=== PATIENT | female | born 1950 | race Caucasian/White ===

== ENCOUNTER 2021-04-30 12:12 | Outpatient (REF) | payer OTHER, SELFPAY | END 2021-04-30 12:13 | disposition home or self-care (01) | LOC: HO.LAB 12:12 | PROVIDERS: PCP Internal Medicine; Visit Provider Internal Medicine | DX: Z13.89 Encounter for screening for other disorder (principal) ==

== ENCOUNTER 2021-05-03 07:36 | Outpatient (REF) | payer OTHER, SELFPAY ==
[2021-05-03 08:00] LABS: COVID-19 Test Negative (Negative)
== END 2021-05-03 07:37 | disposition home or self-care (01) ==
LOC: HO.LAB 07:36
PROVIDERS: PCP Internal Medicine; Visit Provider Internal Medicine
DX: Z20.822 Contact with and (suspected) exposure to COVID-19 (principal)
CPT/HCPCS: 36415; 87635; C9803

== ENCOUNTER 2021-12-07 09:14 | Emergency (ER) | payer OTHER, SELFPAY ==
--- NOTE | ~2021-12-07 | XR_ITS ---
EXAMINATION: XR CHEST CLINICAL INFORMATION: Chest pain COMPARISON: Previous chest x-ray most recent September 2019 TECHNIQUE: Frontal view of the chest was obtained. FINDINGS: No significant abnormality is noted involving the heart, lungs, mediastinum, bony thorax or soft tissues. XR/XR chest 1V IMPRESSION: Unremarkable examination.
--- NOTE | 2021-12-07 09:17 | ECG_ITS ---
Test Reason : CHEST PAIN Blood Pressure : / mmHG Vent. Rate : 076 BPM Atrial Rate : 076 BPM P-R Int : 146 ms QRS Dur : 068 ms QT Int : 388 ms P-R-T Axes : 063 -28 052 degrees QTc Int : 436 ms Normal sinus rhythm Normal ECG When compared with ECG of 13-SEP-2019 10:12, No significant change was found Referred By: Generic ED Physician Electronically Signed By:Yariel Ibarra
[2021-12-07 09:27] VITALS: BP 163/85; PULSE 88; RESP 18; TEMP 36.7; O2SAT 98; BMI 24.3
--- NOTE | 2021-12-07 09:35 | ED.CHESTPAIN ---
HPI - Chest Pain General Chief Complaint: Chest Pain Stated Complaint: chest discomfort Time Seen by Provider: 12/07/21 09:35 Source: patient Mode of arrival: ambulatory Limitations: no limitations History of Present Illness HPI narrative: 71 y/o female with history of HTN, strabismus who presents to the ER with chronic intermittent episodes of left-sided chest pain for the last several years. She reports the pain is a dull ache or tightness in the left chest that occurs randomly. And has been on and off for several years. She had a normal stress test several years back. Pain is not worse with exertion. she denies any shortness of breath, diaphoresis, nausea. She is very physically active and fit. Her primary care was not worried about cardiac etiology. She presents to the ER today because she also has new onset of left forearm pain the last few days. She called her PCP and told him about this, concern for possible cardiac etiology in combination with the chest pain so she was referred to the emergency room for further evaluation. Left forearm pain is anterior and proximal in location. Worse with palpation, no numbness, tingling or weakness. Right hand dominant. MD complaint: chest pain Onset (ago): year(s) Timing of current episode: episodic Prior episodes: Yes Onset: during rest Pain location: left chest Pain radiation: none Severity: mild Pain scale (0-10): 3 Quality: heaviness Relieving factors: nothing Exacerbating factors: nothing Treatment prior to arrival: none Risk Factors Coronary artery disease risk factors: hypertension Thoracic aortic dissection risk factors: none Related Data Previous Rx's Medication Instructions Recorded lorazepam 1 mg tablet (Ativan) 1 mg PO DAILY PRN #10 tab 12/07/21 Allergies Allergy/AdvReac Type Severity Reaction Status Date / Time morphine [Morphine] Allergy Unknown NAUSEA Verified 12/07/21 09:25 Review of Systems Review of Systems: Constitutional: No Fever, No Chills ENT/Mouth: No sore throat, No Rhinorrhea Cardiovascular: + Chest Pain, No SOB, No Orthopnea, No Edema Respiratory: No Cough, No Sputum, No Wheezing, No dyspnea Gastrointestinal: No Nausea, No Vomiting, No Diarrhea, No abdominal Pain Genitourinary: No Dysuria, No Urinary Frequency, No Hematuria Musculoskeletal: No joint pain, + Myalgias Skin: No Skin Lesions, No rash Neuro: No Weakness, No Numbness, No Dizziness, No Headache Psych: +Anxiety/Panic, No Depression Heme/Lymph: No Bruising, No Lymphadenopathy Endocrine: No Polyuria, No Polydipsia [facility] Past Medical History Medical History (Updated 12/07/21 @ 11:40 by MAO Phillip) HTN (hypertension) ELI (obstructive sleep apnea) Social History Social History Advance Directives: No Advance Directives Information Provided: No Physical Exam Vital Signs: Vital Signs: Last Vital Signs Temp 97.8 F 12/07/21 10:29 Pulse 80 12/07/21 10:29 Resp 18 12/07/21 10:29 BP 152/86 H 12/07/21 10:29 Pulse Ox 99 12/07/21 10:29 BMI result Body Mass Index 24.3 Appearance: Alert. Oriented X3. No acute distress. Eyes: Pupils equal, round and reactive to light. ENT: Pharynx normal. Neck: Normal inspection. Neck supple. CVS: Normal heart rate and rhythm. Pulses normal. Anterior chest wall tenderness. Respiratory: No respiratory distress. Breath sounds normal. Abdomen: Soft and nontender. +BS x4 Skin: Skin warm and dry. Normal skin color. Normal skin turgor. No rashes. Extremities: No lower extremity edema. Normal inspection of the bilateral UE, left anterior proximal forearm with mild soft tissue tenderness. Compartments soft and compressible. NV Intact distally. Normal ROM of the elbow and wrist. Neuro: Oriented X 3. No motor deficit. No sensory deficit. Course Course Course Narrative: 71-year-old female presenting to the ER with chronic left-sided chest pain Along with new left forearm pain. These 2 do not seem to be related. Doubt cardiac etiology of her chest pain given the chronicity. She had a stress test several years ago that was negative. EKG on arrival is normal. Reevaluation(s) Reevaluation #1: EKG is normal. Troponin 9. This is not consistent with cardiac ischemia/ACS. Patient admits to increased stress and anxiety. Would like a short course of PRN ativan until she can see her PCP, she has been on this in the past. Comfortable with d/c home with outpatient follow up. MDM - Chest Pain Medical Records Data Attestation: I reviewed the patient's medical records. Lab Data Attestation: I reviewed the patient's lab results. Result diagrams: 12/07/21 10:26 12/07/21 10:26 Labs: Lab Results 12/07/21 12/07/21 12/07/21 Range/Units 10:26 10:26 10:26 WBC 5.0 (4.8-10.8) X10*3/uL RBC 4.77 (4.20-5.50) X10*6/uL Hgb 14.7 (12.0-16.0) g/dl Hct 44.9 (37.0-47.0) % MCV 94.1 (80.0-98.0) fL MCH 30.8 (27.0-33.0) pg MCHC 32.7 (31.0-35.0) g/dl RDW 12.6 (11.0-16.0) % Plt Count 305 (160-400) X10*3/uL MPV 9.7 (9.4-12.3) fL Immature Gran % (Auto) 0.2 (0.0-0.4) % Neut % (Auto) 65.7 (45-73) % Lymph % (Auto) 23.4 (20-40) % [place] % (Auto) 9.3 (2-11) % Eos % (Auto) 0.4 (0-4) % Baso % (Auto) 1.0 (0-2) % Lymph # (Auto) 1.2 (1.2-4.9) X10*3/uL [place] # (Auto) 0.5 (0.1-1.2) X10*3/uL Eos # (Auto) 0.0 (0.0-0.4) X10*3/uL Baso # (Auto) 0.1 (0.0-0.2) X10*3/uL Abs Immat Gran (auto) 0.01 (0.00-0.03) X10*3/uL Absolute Neuts (auto) 3.3 (2.0-8.3) x10*3/uL Absolute Nucleated RBC 0.000 (0.0-0.012) X10*3/uL Nucleated RBC % (auto) 0.0 (0.0-0.2) /100WBC Sodium 137 (135-145) mmol/L Potassium 5.2 H (3.3-5.1) mmol/L Chloride 102 (96-108) mmol/L Carbon Dioxide 26 (22-29) mmol/L Anion Gap 14 (12-20) BUN 10 (9-16) mg/dL Creatinine 1.02 (0.5-1.4) mg/dL Estim Creat Clear Calc 44.9 Estimated GFR 54 Random Glucose 112 (60-115) mg/dL Calcium 10.1 (8.4-10.2) mg/dL Magnesium 2.0 (1.6-2.6) mg/dL Total Bilirubin 0.7 (0.0-1.0) mg/dL Direct Bilirubin 0.3 (0.0-0.5) mg/dL AST 17 (5-31) U/L ALT < 6 (0-31) U/L Alkaline Phosphatase 81 (39-117) U/L Troponin I High Sens 9.4 (<3.5-17.0) ng/L Total Protein 6.8 (6.5-8.0) g/dL Albumin 4.3 (3.5-5.0) g/dL COVID-19 (STEVE) (Negative) COVID-19 Clin Com 12/07/21 Range/Units 10:26 WBC (4.8-10.8) X10*3/uL RBC (4.20-5.50) X10*6/uL Hgb (12.0-16.0) g/dl Hct (37.0-47.0) % MCV (80.0-98.0) fL MCH (27.0-33.0) pg MCHC (31.0-35.0) g/dl RDW (11.0-16.0) % Plt Count (160-400) X10*3/uL MPV (9.4-12.3) fL Immature Gran % (Auto) (0.0-0.4) % Neut % (Auto) (45-73) % Lymph % (Auto) (20-40) % [place] % (Auto) (2-11) % Eos % (Auto) (0-4) % Baso % (Auto) (0-2) % Lymph # (Auto) (1.2-4.9) X10*3/uL [place] # (Auto) (0.1-1.2) X10*3/uL Eos # (Auto) (0.0-0.4) X10*3/uL Baso # (Auto) (0.0-0.2) X10*3/uL Abs Immat Gran (auto) (0.00-0.03) X10*3/uL Absolute Neuts (auto) (2.0-8.3) x10*3/uL Absolute Nucleated RBC (0.0-0.012) X10*3/uL Nucleated RBC % (auto) (0.0-0.2) /100WBC Sodium (135-145) mmol/L Potassium (3.3-5.1) mmol/L Chloride (96-108) mmol/L Carbon Dioxide (22-29) mmol/L Anion Gap (12-20) BUN (9-16) mg/dL Creatinine (0.5-1.4) mg/dL Estim Creat Clear Calc Estimated GFR Random Glucose (60-115) mg/dL Calcium (8.4-10.2) mg/dL Magnesium (1.6-2.6) mg/dL Total Bilirubin (0.0-1.0) mg/dL Direct Bilirubin (0.0-0.5) mg/dL AST (5-31) U/L ALT (0-31) U/L Alkaline Phosphatase (39-117) U/L Troponin I High Sens (<3.5-17.0) ng/L Total Protein (6.5-8.0) g/dL Albumin (3.5-5.0) g/dL COVID-19 (STEVE) Negative (Negative) COVID-19 Clin Com See Note ECG Data ECG #1: Attestation: I personally reviewed and interpreted this ECG as follows: ECG interpretation date: 12/07/21 Interpretation: Normal sinus rhythm, heart rate 76 beats per minute, normal IA interval, normal QRS, normal QTC, no ST segment elevations or depressions. Critical Care Time Critical Care Time Critical Care Time: No Discharge Plan Discharge Clinical Impression: Atypical chest pain Patient Disposition: Home, Self-Care Instructions: Noncardiac Chest Pain (ED) Additional Instructions: Your lab workup & EKG today were unremarkable. The arm pain does not seem to be related to the chest discomfort and your chest discomfort is not thought to be cardiac in nature. Recommend following up with your primary care doctor. Take the prescribed medication as needed for anxiety. If you develop new or worsening symptoms call 911 or come back to the ER for further evaluation. Prescriptions: New lorazepam [Ativan] 1 mg tablet 1 mg PO DAILY PRN (Reason: anxiety) Qty: 10 0RF Referrals: Joseline Ayers MD [Primary Care Provider] - 1 week (follow up chronic left sided chest pain) Interventions: ED Discharge Assessment Last Done: 12/07/21 12:11 Discharge Date/Time: 12/07/21 12:11
[2021-12-07 10:29] VITALS: BP 152/86; PULSE 80; RESP 18; TEMP 36.6; O2SAT 99
[2021-12-07 10:35] LABS: MANUAL DIFF FLAG NO
[2021-12-07 10:38] LABS: Basophils Absolute Auto 0.1 X10*3/uL (0.0-0.2); Eosinophils Percent Auto 0.4 % (0-4); Hematocrit 44.9 % (37.0-47.0); Hemoglobin 14.7 g/dl (12.0-16.0); Imm Gran Abs Auto 0.01 X10*3/uL (0.00-0.03); Imm Gran Pct Auto 0.2 % (0.0-0.4); Lymphocytes Absolute Auto 1.2 X10*3/uL (1.2-4.9); Lymphocytes Percent Auto 23.4 % (20-40); Mean Corpuscular HGB Conc 32.7 g/dl (31.0-35.0); Mean Corpuscular Hemoglobin 30.8 pg (27.0-33.0); Mean Corpuscular Volume 94.1 fL (80.0-98.0); Mean Platelet Volume 9.7 fL (9.4-12.3); Monocytes Absolute Auto 0.5 X10*3/uL (0.1-1.2); Monocytes Percent Auto 9.3 % (2-11); Neutrophils Absolute Auto 3.3 x10*3/uL (2.0-8.3); Neutrophils Percent Auto 65.7 % (45-73); Platelet Count 305 X10*3/uL (160-400); Red Blood Count 4.77 X10*6/uL (4.20-5.50); Red Cell Distribution Width 12.6 % (11.0-16.0)
[2021-12-07 11:04] LABS: COVID-19 Test Negative (Negative)
[2021-12-07 11:12] LABS: Alanine Aminotransferase < 6 U/L (0-31); Albumin Level 4.3 g/dL (3.5-5.0); Alkaline Phosphatase 81 U/L (39-117); Anion Gap 14 (12-20); Aspartate Amino Transferase 17 U/L (5-31); Bilirubin Direct 0.3 mg/dL (0.0-0.5); Bilirubin Total 0.7 mg/dL (0.0-1.0); Blood Urea Nitrogen 10 mg/dL (9-16); Calcium 10.1 mg/dL (8.4-10.2); Carbon Dioxide 26 mmol/L (22-29); Chloride 102 mmol/L (96-108); Creatinine Clr Calc Pharmacy 44.9; Estimated Glomerular Filt Rate 54; Glucose Random 112 mg/dL (60-115); Potassium 5.2 mmol/L (3.3-5.1); Sodium 137 mmol/L (135-145); Total Protein 6.8 g/dL (6.5-8.0)
[2021-12-07 11:26] LABS: Troponin-I High Sensitivity 9.4 ng/L (<3.5-17.0)
== END 2021-12-07 12:11 | disposition home or self-care (01) ==
PROVIDERS: Physician Assistant; Emergency Provider Emergency Medicine; PCP Internal Medicine
DX: R07.89 Other chest pain (principal); I10 Essential (primary) hypertension; Z20.822 Contact with and (suspected) exposure to COVID-19; Z79.899 Other long term (current) drug therapy
CPT/HCPCS: 71045; 80048; 80076; 83735; 84484; 85025; 87635; 93005; 99283; 99284

== ENCOUNTER 2022-09-18 15:25 | Emergency (ER) | payer OTHER, SELFPAY ==
[2022-09-18 16:38] VITALS: BP 179/89; PULSE 105; RESP 18; TEMP 36.8; O2SAT 97; BMI 24.0
--- NOTE | 2022-09-18 16:42 | ECG_ITS ---
Test Reason : weakness Blood Pressure : / mmHG Vent. Rate : 092 BPM Atrial Rate : 092 BPM P-R Int : 142 ms QRS Dur : 068 ms QT Int : 350 ms P-R-T Axes : 049 -27 049 degrees QTc Int : 432 ms Normal sinus rhythm Normal ECG When compared with ECG of 07-DEC-2021 09:18, No significant change was found Referred By: Generic ED Physician Electronically Signed By:PONCHO DE LOS SANTOS
[2022-09-18 18:06] LABS: MANUAL DIFF FLAG NO
[2022-09-18 18:07] LABS: Basophils Absolute Auto 0.1 X10*3/uL (0.0-0.2); Basophils Percent Auto 0.6 % (0-2); Eosinophils Percent Auto 0.3 % (0-4); Hematocrit 42.3 % (37.0-47.0); Hemoglobin 14.4 g/dl (12.0-16.0); Imm Gran Abs Auto 0.09 X10*3/uL (0.00-0.03); Lymphocytes Absolute Auto 1.4 X10*3/uL (1.2-4.9); Lymphocytes Percent Auto 16.2 % (20-40); Mean Corpuscular Hemoglobin 30.3 pg (27.0-33.0); Mean Corpuscular Volume 88.9 fL (80.0-98.0); Mean Platelet Volume 8.1 fL (9.4-12.3); Monocytes Absolute Auto 0.9 X10*3/uL (0.1-1.2); Monocytes Percent Auto 10.1 % (2-11); Neutrophils Absolute Auto 6.3 x10*3/uL (2.0-8.3); Neutrophils Percent Auto 71.8 % (45-73); Platelet Count 367 X10*3/uL (160-400); Red Blood Count 4.76 X10*6/uL (4.20-5.50); Red Cell Distribution Width 12.9 % (11.0-16.0); White Blood Count 8.8 X10*3/uL (4.8-10.8)
[2022-09-18 18:20] LABS: COVID-19 Test Negative (Negative); IDNOW Serial# 16C4AD1C
[2022-09-18 18:23] LABS: IDNOW Serial# BCCEAD1C; Influenza A Negative (Negative); Influenza B2 Negative (Negative)
[2022-09-18 18:28] LABS: Anion Gap 14 (12-20); Blood Urea Nitrogen 14 mg/dL (9-16); Calcium 9.5 mg/dL (8.4-10.2); Carbon Dioxide 24 mmol/L (22-29); Chloride 98 mmol/L (96-108); Creatinine Clr Calc Pharmacy 57.2; Estimated Glomerular Filt Rate > 60; Glucose Random 128 mg/dL (60-115); Potassium 4.3 mmol/L (3.3-5.1); Sodium 132 mmol/L (135-145)
[2022-09-18 20:59] VITALS: BP 176/86; PULSE 102; RESP 22; TEMP 36.8; O2SAT 98
--- NOTE | 2022-09-18 21:13 | ED.GENADULT ---
HPI - General Adult General Chief complaint: Weakness Stated complaint: weak, high blood pressure Time Seen by Provider: 09/18/22 20:52 Source: patient Mode of arrival: ambulatory Limitations: no limitations History of Present Illness HPI narrative: Patient comes to the emergency room complaining of not feeling right. Patient states that she is recovering from a upper respiratory infection. For the last 3 days she has been feeling well respiratory [place], however, she has been feeling a bit ?weak and woozy . Patient denies any chest pain or shortness of breath, no lightheadedness, no chest pain. Patient states that she feels a bit anxious, tomorrow is the anniversary of her twins brother's . Patient denies any near syncopal episodes, no nausea vomiting or diarrhea. Patient states that 2 weeks ago, her lisinopril was increased from 10 mg to 20 mg for blood pressure. What makes patient come today is that she has been tachycardic between 110-120 without any recent. Patient denies feeling anxious or having panic attacks. Related Data Previous Rx's Medication Instructions Recorded lorazepam 1 mg tablet (Ativan) 1 mg PO DAILY PRN anxiety #10 tabs 12/07/21 Allergies Allergy/AdvReac Type Severity Reaction Status Date / Time morphine [Morphine] Allergy Unknown NAUSEA Verified 12/07/21 09:25 Review of Systems Review of Systems: Constitutional : No Weight loss, No Fever, No Chills, No Night Sweats, No Fatigue, No Malaise, not feeling quite right ENT/Mouth : No Hearing loss, No Ear Pain, No Nasal Congestion, No Sinus Pain, No Hoarseness, No sore throat, No Rhinorrhea, No Swallowing Difficulty Eyes: No Eye Pain, No Swelling, No Redness, No Foreign Body, No Discharge, No Vision Changes Cardiovascular : No Chest Pain, No SOB, No Dyspnea on Exertion, No Orthopnea, No Edema, No Palpitations Respiratory : Residual cough from URI, No Sputum, No Wheezing, No Smoke Exposure, No Dyspnea Gastrointestinal : No Nausea, No Vomiting, No Diarrhea, No Constipation, No abdominal Pain, No Hematochezia, No Melena Genitourinary : no irregular bleeding, No Dysuria, No Urinary Frequency, No Hematuria, No Urinary Incontinence, No Urgency, No Flank Pain, No Urinary Flow Changes, No Hesitancy Musculoskeletal : No joint pain, No Myalgias, No Joint Swelling Skin : No Skin Lesions, No rash Neuro : No Weakness, No Numbness, No Paresthesias, No Loss of Consciousness, No Dizziness, No Headache Psych : No Anxiety/Panic, No Depression, No SI/HI/AH/VH, No Social Issues, Heme/Lymph: No Bruising, No Bleeding,No Lymphadenopathy Endocrine : No Polyuria, No Polydipsia, No Temperature Intolerance [facility] Past Medical History Medical History HTN (hypertension) ELI (obstructive sleep apnea) Social History Social History Alcohol intake: current Alcohol intake frequency: a few times a week Alcohol type: beer Smoked in Last 30 Days: No Use of substances other than those prescribed or required for medical reasons: No Advance Directives: No Advance Directives Information Provided: No Physical Exam ED Vital Signs: Vital Signs - 24 hr 09/18/22 16:38 09/18/22 20:59 09/19/22 00:31 Temperature 98.2 F 98.2 F 98.1 F Pulse Rate 105 H 102 H 93 Respiratory Rate 18 22 H 18 Blood Pressure 179/89 H 176/86 H 153/85 H Pulse Oximetry 97 98 99 Oxygen Delivery Method Room Air Room Air Room Air BMI result Body Mass Index 24.0 Const Other: Appearance: Alert. Oriented X3. No acute distress. Eyes: Pupils equal, round and reactive to light. ENT: Pharynx normal. Neck: Normal inspection. Neck supple. No lymph nodes noted. No crepitus CVS: Normal heart rate and rhythm. Pulses normal. Normal S1 and S2 Respiratory: No respiratory distress. Breath sounds normal. No Wheezing. No rales Abdomen: Soft and nontender. No rigidity. No distention. Skin: Skin warm and dry. Normal skin color. Normal skin turgor. Extremities: No lower extremity edema. No Lacerations. No Rash Neuro: Oriented X 3. No motor deficit. No sensory deficit. Moving all extremities. No slurred speech. CN 2 through 12 grossly intact Psych: calm, cooperative, normal affect Course Course Course Narrative: Patient's blood pressure 176/86, heart rate 102. Patient's sodium slightly decreased at 132, troponin is within normal limits but is on the upper limits of normal. Will go ahead and repeat troponin. Patient has been tachycardic, per patient at home she has been up to 130 with any clear reason, denies feeling anxious, dimer pending Mild hyponatremia, patient received 1 L of normal saline Troponins are relatively stable. Patient feels well, no chest pain. Patient ready for discharge. D-dimer adjusted for age is negative. Wells criteria score for PE 0 Medications Administered Discontinued Medications Generic Name Dose Route Start Last Admin Trade Name Freq PRN Reason Stop Dose Admin Sodium Chloride 1,000 mls @ 999 mls/hr 09/18/22 21:12 09/18/22 22:08 Ns IVCONT 09/18/22 22:12 999 mls/hr .Q1H1M ONE Administration Medical Decision Making Medical Decision Making Differential Diagnoses: Differential diagnosis (Viral syndrome, UTI, ACS) Lab Attestation: I reviewed the patient's lab results. (Troponins a relatively flat, no chest pain) Independent interpretation of EKG, rhythm strip, radiology study: Independent interp EKG,rhythm strip, radiology study I performed an independent interpretation of the: EKG My interpretation is sinus rhythm, heart rate 92, no ST segment depression or elevation, no T-wave inversion Discharge Plan Discharge Clinical Impression: Acute viral syndrome Patient Disposition: Home, Self-Care Instructions: Viral Syndrome (ED) Additional Instructions: Please follow-up with your primary care physician tomorrow. If you have any worsening or new symptoms, please return to the emergency room or call 911 Prescriptions: No Action lorazepam [Ativan] 1 mg tablet 1 mg PO DAILY PRN (Reason: anxiety) Qty: 10 0RF
[2022-09-18] MEDS: 0.9 % Sodium Chloride 1,000 ML 999 ML IVCONT (22:08)
[2022-09-18 22:17] LABS: Appearance Urine Clear; Color Urine Yellow; Glucose Urine UA Negative (Negative); Leukocyte Esterase Urine Negative (Negative); Nitrite Urine Negative (Negative); PH 6.5 (5.0-9.0); Urine Blood Negative (Negative); Urine Ketones Negative (Negative); Urine Protein Negative (Neg-Trace)
[2022-09-18 22:27] LABS: D Dimer High Sensitivity 235 NG/ML
[2022-09-18 22:39] LABS: Troponin-I High Sensitivity 19.7 ng/L (<3.5-17.0)
[2022-09-19 00:31] VITALS: BP 153/85; PULSE 93; RESP 18; TEMP 36.7; O2SAT 99
[2022-09-19 00:53] LABS: Troponin-I High Sensitivity 19.5 ng/L (<3.5-17.0)
[2022-09-19 01:32] VITALS: BP 162/89; PULSE 91; RESP 18; O2SAT 96
== END 2022-09-19 01:42 | disposition home or self-care (01) ==
PROVIDERS: Internal Medicine; Emergency Provider Emergency Medicine; PCP Internal Medicine
DX: B34.9 Viral infection, unspecified (principal); R00.0 Tachycardia, unspecified; Z20.822 Contact with and (suspected) exposure to COVID-19; Z79.899 Other long term (current) drug therapy
CPT/HCPCS: 36415; 80048; 81003; 84484; 85025; 85379; 87502; 87635; 93005; 99283; 99284

== ENCOUNTER 2022-11-28 12:29 | Emergency (ER) | payer OTHER, SELFPAY ==
--- NOTE | ~2022-11-28 | CT_ITS ---
EXAMINATION: CT HEAD WITHOUT CONTRAST CLINICAL INFORMATION: Headache. COMPARISON: CT head 09/13/2019 TECHNIQUE: Contiguous axial imaging was performed from the skull base to vertex without intravenous administration of contrast. Coronal and sagittal reformatted images are performed at the CT scanner. [This CT examination was performed using dose optimization techniques as appropriate, variously including the following: *Automated exposure control *Adjustment of mA and/or kV according to patient size (this includes techniques or standardized protocols for targeted exams where dose is matched to indication/reason for exam; i.e. extremities or head) *Use of iterative reconstruction technique] DLP: 606 mGy-cm. FINDINGS: There is no evidence of acute intracranial hemorrhage or territorial infarction. No abnormal mass-effect or midline shift is seen. Price to white matter differentiation is well preserved. No extra-axial fluid collections are identified. The ventricles are normal in size. There is no abnormal attenuation within the brain parenchyma. There is no osseous abnormality. The mastoid air cells and visualized portions of the paranasal sinuses are well-aerated. CT/CT head/brain wo IV con IMPRESSION: No acute intracranial pathology.
--- NOTE | ~2022-11-28 | XR_ITS ---
EXAMINATION: XR CHEST CLINICAL INFORMATION: Weakness COMPARISON: Previous chest x-ray most recent December 2021 TECHNIQUE: 2 views of the chest were obtained. FINDINGS: The cardiac and mediastinal contours are stable. The lungs are clear. The lungs are well-inflated questionable for COPD. There is no pleural effusion or pneumothorax.. There are degenerative changes of the spine. XR/XR chest 2V IMPRESSION: No evidence for acute disease in the chest.
--- NOTE | 2022-11-28 12:35 | ECG_ITS ---
Test Reason : heart fluttering Blood Pressure : / mmHG Vent. Rate : 072 BPM Atrial Rate : 072 BPM P-R Int : 160 ms QRS Dur : 070 ms QT Int : 396 ms P-R-T Axes : 070 -21 059 degrees QTc Int : 433 ms Normal sinus rhythm Nonspecific ST abnormality Abnormal ECG When compared with ECG of 18-SEP-2022 17:48, Nonspecific ST and T wave abnormality slightly more prominent Referred By: Kelly Kyle Electronically Signed By:PONCHO DE LOS SANTOS
--- NOTE | 2022-11-28 12:36 | ED.ARRPALP ---
HPI - Arrhythmia/Palpitations General Chief Complaint: Chest Pain <MAO Phillip - Last Filed: 11/28/22 12:43> Stated Complaint: Heart fluttering/Weakness/ feels funny <MAO Phillip - Last Filed: 11/28/22 12:43> Time Seen by Provider: 11/28/22 19:54 <MAO Phillip - Last Filed: 11/28/22 12:43> Source: patient and family <Bay Johnson MD - Last Filed: 11/28/22 20:44> Mode of arrival: ambulatory <Bay Johnson MD - Last Filed: 11/28/22 20:44> Limitations: no limitations <Bay Johnson MD - Last Filed: 11/28/22 20:44> History of Present Illness HPI narrative: 72-year-old female recently diagnosed with hypertension patient was placed on lisinopril and Cardizem initially, then recently her PCP added metoprolol to her medication, patient stated that ever since she had the metoprolol been getting episodes of feeling palpitation and heart is fluttering, waves of severe headache that stay for short time then improve, patient was driving today when she started to have the symptoms of feeling palpitation and heart fluttering with headache that has improved symptoms was associated with nausea but no vomiting, no blurry vision, no photophobia, no neck stiffness. During the interview patient has no chest pain or palpitation <Bay Johnson MD - Last Filed: 11/28/22 20:44> Related Data Home Medications: Previous Rx's Medication Instructions Recorded lorazepam 1 mg tablet (Ativan) 1 mg PO DAILY PRN anxiety #10 tabs 12/07/21 <MAO Phillip - Last Filed: 11/28/22 12:43> Allergies/Adverse Reactions: Allergies Allergy/AdvReac Type Severity Reaction Status Date / Time morphine [Morphine] Allergy Unknown NAUSEA Verified 11/28/22 12:37 <MAO Phillip - Last Filed: 11/28/22 12:43> Review of Systems Review of Systems: All other systems are reviewed and are negative Constitutional: Reports as per HPI and Reports no additional constitutional complaints Eyes: Reports as per HPI and Reports no additional eye complaints Reports system reviewed and no additional complaints, except as documented Cardiovascular: Reports as per HPI and Reports no additional cardiovascular complaints Respiratory: Reports as per HPI and Reports no additional respiratory complaints Gastrointestinal: Reports as per HPI and Reports no additional gastrointestinal complaints Genitourinary: Reports no additional female genitourinary complaints Musculoskeletal: Reports no additional musculoskeletal complaints Skin/Breast: Reports system reviewed and no additional complaints, except as docu Psychiatric: Reports no additional psychiatric complaints Endocrine: Reports no additional endocrine complaints Hematologic/Lymphatic: Reports no additional hematologic/lymphatic complaints Allergic/Immunologic: Reports no additional allergic/immunologic complaints Reports system reviewed and no additional complaints, except as documented and Reports Abnormal speech present <Bay Johnson MD - Last Filed: 11/28/22 20:44> [facility] Past Medical History Medical History: Medical History HTN (hypertension) ELI (obstructive sleep apnea) <MAO Phillip - Last Filed: 11/28/22 12:43> Social History Social History: Social History Alcohol intake: current Alcohol intake frequency: a few times a week Alcohol type: beer Advance Directives: No Advance Directives Information Provided: No <MAO Phillip - Last Filed: 11/28/22 12:43> Physical Exam Vital Signs: Vital Signs: Last Vital Signs Temp 98.0 F 11/28/22 19:55 Pulse 84 11/28/22 19:55 Resp 16 11/28/22 19:55 BP 157/79 H 11/28/22 19:55 Pulse Ox 97 11/28/22 19:55 O2 Del Method 11/28/22 19:55 BMI result Body Mass Index 24.3 <MAO Phillip - Last Filed: 11/28/22 12:43> Vital Signs: Last Vital Signs Temp 98.0 F 11/28/22 19:55 Pulse 84 11/28/22 19:55 Resp 16 11/28/22 19:55 BP 157/79 H 11/28/22 19:55 Pulse Ox 97 11/28/22 19:55 O2 Del Method 11/28/22 19:55 BMI result Body Mass Index 24.3 Vital signs have been reviewed as appeared to be correct. Blood pressure normal. Heart rate normal. Respiration rate normal. Temperature normal. Oxygen saturation normal. <Bay Johnson MD - Last Filed: 11/28/22 20:44> Appearance: Anxious, Alert. Oriented X3. No acute distress. Head: Normal external exam. Normocephalic. Atraumatic. No Haider signs noted. No raccoon eyes noted Eyes: PERRLA. EOMI. Conjunctiva and sclera normal. Eyelids normal. ENT: TM's Normal. Pharynx normal. Uvula midline. Moist mucous membranes. No trismus noted. No drooling noted. No muffled voice noted. Neck: Normal inspection. Neck supple. FROM. No adenopathy. Thyroid Normal. No meningeal signs. No neck mass noted. CVS: Normal heart rate and rhythm. Heart sound normal. No murmurs noted. Pulses normal throughout. Respiratory: No respiratory distress. Painless inspiration. Breath sounds normal. No wheezes/rales/rhonchi noted. Chest nontender. No accessory muscle usage noted or decreased air movement noted. Abdomen: Soft and nontender. Bowel sounds normal in all 4 quadrants. No distention noted. No organomegaly noted. No visible injury noted. Back: No CVA tenderness. Full range of motion noted. Skin: Skin warm and dry. Normal skin color. Normal skin turgor. No rashes/lesions/lacerations noted. Extremities: No lower extremity edema. Extremities exhibit normal range of motion. Extremities nontender. Neuro: Oriented X 3. Cranial nerve exam: II-XII are grossly intact No motor deficit. No sensory deficit. Reflexes normal. <Bay Johnson MD - Last Filed: 11/28/22 20:44> Course Course Course Narrative: RME - 72 yo female with history of HTN who presents to the ER for evaluation of heart fluttering, pounding headache, weakness and feeling hot that started a couple days ago, but got acutely worse 30 mins ago while driving. Feels nauseated, shakey and weak. Metoprolol was recently started for difficult to control BP (has been running 140-160s systolic at home). She is also on cardizem and lisinopril. No chest pain or SOB. something isn't right. VS w/ SBP 180s in triage, HR 90s. Will get EKG, troponin, labs. <MAO Phillip - Last Filed: 11/28/22 12:43> Reevaluation(s) Reevaluation #1: 72-year-old female came in for headache and chest pain that is been going on and off since she started her metoprolol patient appears to be very anxious in the emergency department, unremarkable EKG and unremarkable labs including troponin, normal neuro exam a normal head CT. Will reassure patient has an appointment with her PCP in 3 days. <Bay Johnson MD - Last Filed: 11/28/22 20:44> Time: 21:00 <Bay Johnson MD - Last Filed: 11/28/22 20:44> Medical Decision Making Differential Diagnosis Differential Diagnoses: The differential diagnosis associated with the presentation includes (Hypertensive emergency, ic bleeding, ACS, dysrhythmia, electrolyte disturbance, anemia.) <Bay Johnson MD - Last Filed: 11/28/22 20:44> Lab Data MDM Lab Attestation statement: I reviewed the patient's lab results. <Bay Johnson MD - Last Filed: 11/28/22 20:44> Result Diagrams: 11/28/22 12:58 11/28/22 12:58 <MAO Phillip - Last Filed: 11/28/22 12:43> Labs: Lab Results 11/28/22 11/28/22 11/28/22 Range/Units 12:58 12:58 12:58 WBC 6.3 (4.8-10.8) X10*3/uL RBC 4.78 (4.20-5.50) X10*6/uL Hgb 14.7 (12.0-16.0) g/dl Hct 44.3 (37.0-47.0) % MCV 92.7 (80.0-98.0) fL MCH 30.8 (27.0-33.0) pg MCHC 33.2 (31.0-35.0) g/dl RDW 12.5 (11.0-16.0) % Plt Count 366 (160-400) X10*3/uL MPV 8.8 L (9.4-12.3) fL Immature Gran % (Auto) 0.2 (0.0-0.4) % Neut % (Auto) 58.2 (45-73) % Lymph % (Auto) 31.2 (20-40) % [place] % (Auto) 8.8 (2-11) % Eos % (Auto) 0.6 (0-4) % Baso % (Auto) 1.0 (0-2) % Lymph # (Auto) 2.0 (1.2-4.9) X10*3/uL [place] # (Auto) 0.6 (0.1-1.2) X10*3/uL Eos # (Auto) 0.0 (0.0-0.4) X10*3/uL Baso # (Auto) 0.1 (0.0-0.2) X10*3/uL Abs Immat Gran (auto) 0.01 (0.00-0.03) X10*3/uL Absolute Neuts (auto) 3.7 (2.0-8.3) x10*3/uL Absolute Nucleated RBC 0.000 (0.0-0.012) X10*3/uL Nucleated RBC % (auto) 0.0 (0.0-0.2) /100WBC Sodium 136 (135-145) mmol/L Potassium 3.8 (3.3-5.1) mmol/L Chloride 101 (96-108) mmol/L Carbon Dioxide 22 (22-29) mmol/L Anion Gap 17 (12-20) BUN 8 L (9-16) mg/dL Creatinine 0.82 (0.5-1.4) mg/dL Estim Creat Clear Calc 55.1 Estimated GFR > 60 Random Glucose 110 (60-115) mg/dL Calcium 9.5 (8.4-10.2) mg/dL Magnesium 1.8 (1.6-2.6) mg/dL Total Bilirubin 0.7 (0.0-1.0) mg/dL Direct Bilirubin 0.2 (0.0-0.5) mg/dL AST 18 (5-31) U/L ALT 8 (0-31) U/L Alkaline Phosphatase 68 (39-117) U/L Troponin I High Sens 3.9 D (<3.5-17.0) ng/L Total Protein 7.1 (6.5-8.0) g/dL Albumin 4.5 (3.5-5.0) g/dL TSH (0.32-4.0) uIU/mL Urine Color Urine Appearance Urine pH (5.0-9.0) Ur Specific [place] (1.005-1.025) Urine Protein (Neg-Trace) mg/dL Urine Glucose (UA) (Negative) mg/dL Urine Ketones (Negative) mg/dL Urine Blood (Negative) Urine Nitrite (Negative) Ur Leukocyte Esterase (Negative) Urine RBC (0-2) /HPF Urine WBC (0-5) /HPF Ur Squamous Epith Cells (0-2) /HPF Urine Bacteria (None Seen) Hyaline Casts (0-2) /LPF COVID-19 (STEVE) (Negative) COVID-19 Clin Com 11/28/22 11/28/22 11/28/22 Range/Units 12:58 12:58 19:58 WBC (4.8-10.8) X10*3/uL RBC (4.20-5.50) X10*6/uL Hgb (12.0-16.0) g/dl Hct (37.0-47.0) % MCV (80.0-98.0) fL MCH (27.0-33.0) pg MCHC (31.0-35.0) g/dl RDW (11.0-16.0) % Plt Count (160-400) X10*3/uL MPV (9.4-12.3) fL Immature Gran % (Auto) (0.0-0.4) % Neut % (Auto) (45-73) % Lymph % (Auto) (20-40) % [place] % (Auto) (2-11) % Eos % (Auto) (0-4) % Baso % (Auto) (0-2) % Lymph # (Auto) (1.2-4.9) X10*3/uL [place] # (Auto) (0.1-1.2) X10*3/uL Eos # (Auto) (0.0-0.4) X10*3/uL Baso # (Auto) (0.0-0.2) X10*3/uL Abs Immat Gran (auto) (0.00-0.03) X10*3/uL Absolute Neuts (auto) (2.0-8.3) x10*3/uL Absolute Nucleated RBC (0.0-0.012) X10*3/uL Nucleated RBC % (auto) (0.0-0.2) /100WBC Sodium (135-145) mmol/L Potassium (3.3-5.1) mmol/L Chloride (96-108) mmol/L Carbon Dioxide (22-29) mmol/L Anion Gap (12-20) BUN (9-16) mg/dL Creatinine (0.5-1.4) mg/dL Estim Creat Clear Calc Estimated GFR Random Glucose (60-115) mg/dL Calcium (8.4-10.2) mg/dL Magnesium (1.6-2.6) mg/dL Total Bilirubin (0.0-1.0) mg/dL Direct Bilirubin (0.0-0.5) mg/dL AST (5-31) U/L ALT (0-31) U/L Alkaline Phosphatase (39-117) U/L Troponin I High Sens (<3.5-17.0) ng/L Total Protein (6.5-8.0) g/dL Albumin (3.5-5.0) g/dL TSH 1.78 (0.32-4.0) uIU/mL Urine Color Yellow Urine Appearance Clear Urine pH 7.0 (5.0-9.0) Ur Specific [place] 1.010 (1.005-1.025) Urine Protein Negative (Neg-Trace) mg/dL Urine Glucose (UA) Negative (Negative) mg/dL Urine Ketones 15 (Negative) mg/dL Urine Blood Trace H (Negative) Urine Nitrite Negative (Negative) Ur Leukocyte Esterase Negative (Negative) Urine RBC 0-2 (0-2) /HPF Urine WBC 0-5 (0-5) /HPF Ur Squamous Epith Cells 0-2 (0-2) /HPF Urine Bacteria None Seen (None Seen) Hyaline Casts 0-2 (0-2) /LPF COVID-19 (STEVE) Negative (Negative) COVID-19 Clin Com See Note <MAO Phillip - Last Filed: 11/28/22 12:43> Lab Results 11/28/22 11/28/22 11/28/22 Range/Units 12:58 12:58 12:58 WBC 6.3 (4.8-10.8) X10*3/uL RBC 4.78 (4.20-5.50) X10*6/uL Hgb 14.7 (12.0-16.0) g/dl Hct 44.3 (37.0-47.0) % MCV 92.7 (80.0-98.0) fL MCH 30.8 (27.0-33.0) pg MCHC 33.2 (31.0-35.0) g/dl RDW 12.5 (11.0-16.0) % Plt Count 366 (160-400) X10*3/uL MPV 8.8 L (9.4-12.3) fL Immature Gran % (Auto) 0.2 (0.0-0.4) % Neut % (Auto) 58.2 (45-73) % Lymph % (Auto) 31.2 (20-40) % [place] % (Auto) 8.8 (2-11) % Eos % (Auto) 0.6 (0-4) % Baso % (Auto) 1.0 (0-2) % Lymph # (Auto) 2.0 (1.2-4.9) X10*3/uL [place] # (Auto) 0.6 (0.1-1.2) X10*3/uL Eos # (Auto) 0.0 (0.0-0.4) X10*3/uL Baso # (Auto) 0.1 (0.0-0.2) X10*3/uL Abs Immat Gran (auto) 0.01 (0.00-0.03) X10*3/uL Absolute Neuts (auto) 3.7 (2.0-8.3) x10*3/uL Absolute Nucleated RBC 0.000 (0.0-0.012) X10*3/uL Nucleated RBC % (auto) 0.0 (0.0-0.2) /100WBC Sodium 136 (135-145) mmol/L Potassium 3.8 (3.3-5.1) mmol/L Chloride 101 (96-108) mmol/L Carbon Dioxide 22 (22-29) mmol/L Anion Gap 17 (12-20) BUN 8 L (9-16) mg/dL Creatinine 0.82 (0.5-1.4) mg/dL Estim Creat Clear Calc 55.1 Estimated GFR > 60 Random Glucose 110 (60-115) mg/dL Calcium 9.5 (8.4-10.2) mg/dL Magnesium 1.8 (1.6-2.6) mg/dL Total Bilirubin 0.7 (0.0-1.0) mg/dL Direct Bilirubin 0.2 (0.0-0.5) mg/dL AST 18 (5-31) U/L ALT 8 (0-31) U/L Alkaline Phosphatase 68 (39-117) U/L Troponin I High Sens 3.9 D (<3.5-17.0) ng/L Total Protein 7.1 (6.5-8.0) g/dL Albumin 4.5 (3.5-5.0) g/dL TSH (0.32-4.0) uIU/mL Urine Color Urine Appearance Urine pH (5.0-9.0) Ur Specific [place] (1.005-1.025) Urine Protein (Neg-Trace) mg/dL Urine Glucose (UA) (Negative) mg/dL Urine Ketones (Negative) mg/dL Urine Blood (Negative) Urine Nitrite (Negative) Ur Leukocyte Esterase (Negative) Urine RBC (0-2) /HPF Urine WBC (0-5) /HPF Ur Squamous Epith Cells (0-2) /HPF Urine Bacteria (None Seen) Hyaline Casts (0-2) /LPF COVID-19 (STEVE) (Negative) COVID-19 Clin Com 11/28/22 11/28/22 11/28/22 Range/Units 12:58 12:58 19:58 WBC (4.8-10.8) X10*3/uL RBC (4.20-5.50) X10*6/uL Hgb (12.0-16.0) g/dl Hct (37.0-47.0) % MCV (80.0-98.0) fL MCH (27.0-33.0) pg MCHC (31.0-35.0) g/dl RDW (11.0-16.0) % Plt Count (160-400) X10*3/uL MPV (9.4-12.3) fL Immature Gran % (Auto) (0.0-0.4) % Neut % (Auto) (45-73) % Lymph % (Auto) (20-40) % [place] % (Auto) (2-11) % Eos % (Auto) (0-4) % Baso % (Auto) (0-2) % Lymph # (Auto) (1.2-4.9) X10*3/uL [place] # (Auto) (0.1-1.2) X10*3/uL Eos # (Auto) (0.0-0.4) X10*3/uL Baso # (Auto) (0.0-0.2) X10*3/uL Abs Immat Gran (auto) (0.00-0.03) X10*3/uL Absolute Neuts (auto) (2.0-8.3) x10*3/uL Absolute Nucleated RBC (0.0-0.012) X10*3/uL Nucleated RBC % (auto) (0.0-0.2) /100WBC Sodium (135-145) mmol/L Potassium (3.3-5.1) mmol/L Chloride (96-108) mmol/L Carbon Dioxide (22-29) mmol/L Anion Gap (12-20) BUN (9-16) mg/dL Creatinine (0.5-1.4) mg/dL Estim Creat Clear Calc Estimated GFR Random Glucose (60-115) mg/dL Calcium (8.4-10.2) mg/dL Magnesium (1.6-2.6) mg/dL Total Bilirubin (0.0-1.0) mg/dL Direct Bilirubin (0.0-0.5) mg/dL AST (5-31) U/L ALT (0-31) U/L Alkaline Phosphatase (39-117) U/L Troponin I High Sens (<3.5-17.0) ng/L Total Protein (6.5-8.0) g/dL Albumin (3.5-5.0) g/dL TSH 1.78 (0.32-4.0) uIU/mL Urine Color Yellow Urine Appearance Clear Urine pH 7.0 (5.0-9.0) Ur Specific [place] 1.010 (1.005-1.025) Urine Protein Negative (Neg-Trace) mg/dL Urine Glucose (UA) Negative (Negative) mg/dL Urine Ketones 15 (Negative) mg/dL Urine Blood Trace H (Negative) Urine Nitrite Negative (Negative) Ur Leukocyte Esterase Negative (Negative) Urine RBC 0-2 (0-2) /HPF Urine WBC 0-5 (0-5) /HPF Ur Squamous Epith Cells 0-2 (0-2) /HPF Urine Bacteria None Seen (None Seen) Hyaline Casts 0-2 (0-2) /LPF COVID-19 (STEVE) Negative (Negative) COVID-19 Clin Com See Note <Bay Johnson MD - Last Filed: 11/28/22 20:44> Independent Interpretation I performed an independent interpretation of an: EKG (Normal sinus rhythm at 72 beats per minutes, normal intervals, no ST-T changes, no change from previous EKG.), Plain X-Ray (Chest: No acute intrathoracic pathology.) and CT Scan (Head: No acute intra cranial pathology.) <Bay Johnson MD - Last Filed: 11/28/22 20:44> Radiology Impression Discussion of test interpretation with radiology: I have reviewed the radiologist's reading. <Bay Jhonson MD - Last Filed: 11/28/22 20:44> Discharge Plan Discharge Clinical Impression: Atypical chest pain, Essential hypertension <MAO Phillip - Last Filed: 11/28/22 12:43> Patient Disposition: Home, Self-Care <MAO Phillip - Last Filed: 11/28/22 12:43> Instructions: Hypertension (ED) <MAO Phillip - Last Filed: 11/28/22 12:43> Prescriptions: No Action lorazepam [Ativan] 1 mg tablet 1 mg PO DAILY PRN (Reason: anxiety) Qty: 10 0RF <MAO Phillip - Last Filed: 11/28/22 12:43> Referrals: Joseline Ayers MD [Primary Care Provider] - <MAO Phillip - Last Filed: 11/28/22 12:43>
[2022-11-28 12:37] VITALS: BP 181/88; PULSE 92; RESP 18; TEMP 36.6; O2SAT 98; BMI 24.3
[2022-11-28 13:03] LABS: MANUAL DIFF FLAG NO
[2022-11-28 13:04] LABS: Basophils Absolute Auto 0.1 X10*3/uL (0.0-0.2); Eosinophils Percent Auto 0.6 % (0-4); Hematocrit 44.3 % (37.0-47.0); Hemoglobin 14.7 g/dl (12.0-16.0); Imm Gran Abs Auto 0.01 X10*3/uL (0.00-0.03); Imm Gran Pct Auto 0.2 % (0.0-0.4); Lymphocytes Percent Auto 31.2 % (20-40); Mean Corpuscular HGB Conc 33.2 g/dl (31.0-35.0); Mean Corpuscular Hemoglobin 30.8 pg (27.0-33.0); Mean Corpuscular Volume 92.7 fL (80.0-98.0); Mean Platelet Volume 8.8 fL (9.4-12.3); Monocytes Absolute Auto 0.6 X10*3/uL (0.1-1.2); Monocytes Percent Auto 8.8 % (2-11); Neutrophils Absolute Auto 3.7 x10*3/uL (2.0-8.3); Neutrophils Percent Auto 58.2 % (45-73); Platelet Count 366 X10*3/uL (160-400); Red Blood Count 4.78 X10*6/uL (4.20-5.50); Red Cell Distribution Width 12.5 % (11.0-16.0); White Blood Count 6.3 X10*3/uL (4.8-10.8)
--- NOTE | 2022-11-28 13:12 | MHC.EDTECH ---
EKG completed and sigend by . Labs/covid drawn and sent
[2022-11-28 13:17] LABS: COVID-19 Test Negative (Negative); IDNOW Serial# 6674DD1D
[2022-11-28 13:25] LABS: Alanine Aminotransferase 8 U/L (0-31); Albumin Level 4.5 g/dL (3.5-5.0); Alkaline Phosphatase 68 U/L (39-117); Anion Gap 17 (12-20); Aspartate Amino Transferase 18 U/L (5-31); Bilirubin Direct 0.2 mg/dL (0.0-0.5); Bilirubin Total 0.7 mg/dL (0.0-1.0); Blood Urea Nitrogen 8 mg/dL (9-16); Calcium 9.5 mg/dL (8.4-10.2); Carbon Dioxide 22 mmol/L (22-29); Chloride 101 mmol/L (96-108); Creatinine Clr Calc Pharmacy 55.1; Estimated Glomerular Filt Rate > 60; Glucose Random 110 mg/dL (60-115); Magnesium 1.8 mg/dL (1.6-2.6); Potassium 3.8 mmol/L (3.3-5.1); Sodium 136 mmol/L (135-145); Total Protein 7.1 g/dL (6.5-8.0)
[2022-11-28 13:31] LABS: Troponin-I High Sensitivity 3.9 ng/L (<3.5-17.0)
[2022-11-28 13:56] LABS: TSH reflex Free T4 1.78 uIU/mL (0.32-4.0)
[2022-11-28 18:00] VITALS: BP 154/76; PULSE 82; RESP 16; TEMP 36.7; O2SAT 97
[2022-11-28 19:55] VITALS: BP 157/79; PULSE 84; RESP 16; TEMP 36.7; O2SAT 97
--- NOTE | 2022-11-28 19:59 | MHC.EDTECH ---
pt 2000 rounding done ,vitals sign taken ,urine sample sent to lab .
[2022-11-28 20:05] LABS: Appearance Urine Clear; Color Urine Yellow; Glucose Urine UA Negative (Negative); Leukocyte Esterase Urine Negative (Negative); Nitrite Urine Negative (Negative); UMIC TRIGGER UACC YES; Urine Blood Trace (Negative); Urine Ketones 15 mg/dL (Negative); Urine Protein Negative (Neg-Trace)
[2022-11-28 20:10] LABS: Bacteria Urine None Seen (None Seen); Hyaline Casts Urine 0-2 /LPF (0-2); RBC Urine 0-2 /HPF (0-2); Squamous Epithelial Cell Urine 0-2 /HPF (0-2); WBC Urine 0-5 /HPF (0-5)
[2022-11-28 21:21] LABS: Troponin-I High Sensitivity 5.5 ng/L (<3.5-17.0)
[2022-11-28 22:00] VITALS: BP 136/79; PULSE 78; RESP 16; TEMP 36.7; O2SAT 98
[2022-11-28] MEDS: LORazepam 1 MG TABLET PO (23:07)
== END 2022-11-28 23:13 | disposition home or self-care (01) ==
PROVIDERS: Physician Assistant; Emergency Provider Emergency Medicine; PCP Internal Medicine
DX: R07.89 Other chest pain (principal); I10 Essential (primary) hypertension; R51.9 Headache, unspecified; Z20.822 Contact with and (suspected) exposure to COVID-19; Z20.828 Contact with and (suspected) exposure to other viral communicable diseases; Z79.899 Other long term (current) drug therapy
CPT/HCPCS: 36415; 70450; 71046; 80048; 80076; 81001; 83735; 84443; 84484; 85025; 87635; 93005; 99284

== ENCOUNTER 2023-11-16 13:52 | Outpatient (REF) | payer OTHER, SELFPAY | END 2023-11-16 13:53 | disposition home or self-care (01) | LOC: HO.LAB 13:52 | PROVIDERS: Visit Provider Otolaryngology | DX: J30.89 Other allergic rhinitis (principal) | CPT/HCPCS: 36415; 82785; 86003 ==

== ENCOUNTER 2025-03-26 16:04 | Observation (INO) | payer OTHER, SELFPAY ==
[2025-03-26] VITALS (7 sets, daily range): BP systolic 150–174; BP diastolic 74–87; PULSE 65–78; RESP 16–18; TEMP 36.2–36.8; O2SAT 96–98; BMI 24.4; BMI 24.1
--- NOTE | ~2025-03-26 | XR_ITS ---
CLINICAL HISTORY: pain Two views of the chest. COMPARISON: None FINDINGS: Borderline cardiomegaly. Hyperinflation. No consolidation. No pleural effusion or pneumothorax. Mild spondylosis. No acute fracture. IMPRESSION: 1. Hyperinflation. No consolidation. This document has been electronically signed by: Praful Franco MD on 03/26/2025 17:12:32
--- NOTE | ~2025-03-26 | CT_ITS ---
CLINICAL HISTORY: syncope and headache CT head without contrast Comparison: None provided Findings: Scattered subcortical and periventricular hypoattenuation, likely in keeping with chronic small vessel ischemic disease. Parenchymal volume loss with compensatory prominence of the ventricles and CSF spaces. No acute territorial infarction, intracranial hemorrhage, midline shift or hydrocephalus. There is no sinus or mastoid fluid. The orbits are unremarkable. There is no acute fracture. IMPRESSION: 1. No acute intracranial abnormality. 2. Additional findings as described. This document has been electronically signed by: Rashaad Oliver MD on 03/26/2025 18:15:41
--- NOTE | 2025-03-26 16:13 | ECG_ITS ---
Test Reason : CHEST PAIN Blood Pressure : */* mmHG Vent. Rate : 59 BPM Atrial Rate : 59 BPM P-R Int : 190 ms QRS Dur : 68 ms QT Int : 428 ms P-R-T Axes : 69 -14 38 degrees QTcB Int : 423 ms Sinus bradycardia Low voltage QRS Borderline ECG When compared with ECG of 28-Nov-2022 12:51, No significant change was found Referred By: Juanito Edwards Electronically Signed By: Yariel Ibarra
--- NOTE | 2025-03-26 16:13 | ED.GENADULT ---
HPI - General Adult General Chief complaint: Syncope Stated complaint: Passed out earlier, vomiting Time Seen by Provider: 03/26/25 16:29 Source: patient Mode of arrival: ambulatory Limitations: no limitations History of Present Illness ED Provider: DR. Johnson HPI narrative: 75-year-old female came in for evaluation after had a syncopal episode at lunchtime today. Patient was eating cheese burger and glass of beer at a restaurant when she started to feel lightheadedness, and sees flashes patient felt she is going to pass out, patient passed out for few sec witnessed by her friend who was able to wake her up, patient became diaphoretic and sweaty, did not have chest pain or shortness of breath at the time of events patient stated that she has been getting left-sided chest pain intermittently with no clear aggravating or relieving factors, last time patient had chest pain was yesterday for few moments. No weakness, no numbness, no speech abnormality, no facial weakness. Related Data Previous Rx's ?Medication ?Instructions ?Recorded lorazepam 1 mg tablet (Ativan) 1 mg PO DAILY PRN anxiety #10 tabs 12/07/21 Allergies Allergy/AdvReac Type Severity Reaction Status Date / Time morphine (Morphine) Allergy Unknown NAUSEA Verified 03/26/25 16:12 Review of Systems Review of Systems: All other systems are reviewed and are negative Constitutional: Reports as per HPI and Reports no additional constitutional complaints Eyes: Reports as per HPI and Reports no additional eye complaints Reports system reviewed and no additional complaints, except as documented Cardiovascular: Reports as per HPI and Reports no additional cardiovascular complaints Respiratory: Reports as per HPI and Reports no additional respiratory complaints Gastrointestinal: Reports as per HPI and Reports no additional gastrointestinal complaints Genitourinary: Reports no additional female genitourinary complaints Musculoskeletal: Reports no additional musculoskeletal complaints Skin/Breast: Reports system reviewed and no additional complaints, except as docu Psychiatric: Reports no additional psychiatric complaints Endocrine: Reports no additional endocrine complaints Hematologic/Lymphatic: Reports no additional hematologic/lymphatic complaints Allergic/Immunologic: Reports no additional allergic/immunologic complaints Reports system reviewed and no additional complaints, except as documented and Reports Abnormal speech present [facility] Past Medical History Medical History ELI (obstructive sleep apnea) HTN (hypertension) Social History Social History Alcohol intake: current Alcohol intake frequency: a few times a week Alcohol type: beer Advance Directives: No Advance Directives Information Provided: No Do you have a plan to hurt others: No Plan Physical Exam ED Vital Signs: Vital Signs - 24 hr 03/26/25 16:07 03/26/25 17:09 03/26/25 17:09 Temperature 97.2 F Pulse Rate 67 68 67 Respiratory Rate 16 Blood Pressure 162/87 H 150/76 H 162/80 H Pulse Oximetry 98 Oxygen Delivery Method Room Air 03/26/25 17:10 Temperature Pulse Rate 66 Respiratory Rate Blood Pressure 169/79 H Pulse Oximetry Oxygen Delivery Method BMI result Body Mass Index 24.4 Vital signs have been reviewed and appear to be correct. Blood pressure elevated. Heart rate normal. Respiratory rate normal. Temperature normal. Oxygen saturation normal. Appearance: Alert. Oriented X3. No acute distress. Head: Normal external exam. Normocephalic. Atraumatic. No Haider signs noted. No raccoon eyes noted Eyes: PERRLA. EOMI. Conjunctiva and sclera normal. Eyelids normal. ENT: TM's Normal. Pharynx normal. Uvula midline. Moist mucous membranes. No trismus noted. No drooling noted. No muffled voice noted. Neck: Normal inspection. Neck supple. FROM. No adenopathy. Thyroid Normal. No meningeal signs. No neck mass noted. CVS: Normal heart rate and rhythm. Heart sound normal. No murmurs noted. Pulses normal throughout. Respiratory: No respiratory distress. Painless inspiration. Breath sounds normal. No wheezes/rales/rhonchi noted. Chest nontender. No accessory muscle usage noted or decreased air movement noted. Abdomen: Soft and nontender. Bowel sounds normal in all 4 quadrants. No distention noted. No organomegaly noted. No visible injury noted. Back: No CVA tenderness. Full range of motion noted. Skin: Skin warm and dry. Normal skin color. Normal skin turgor. No rashes/lesions/lacerations noted. Extremities: No lower extremity edema. Extremities exhibit normal range of motion. Extremities nontender. Neuro: Mental status: Normal attention, orientation, memory, and affect. Cranial nerves: Pupils are equal, round and reactive to light, EOMI, visual merrill are fall, face is symmetric, facial sensations are normal. Motor examination normal muscle tone, strength to 4 extremities. DTR are +2, planter's are flexor. Sensory exam; normal coordination, no ataxia, gait stable. Cerebellar exam: [id number] and [id number] is normal. Extrapyramidal system: No tremors, no rigidity with normal facial expressions. Pronator drift not present NIH Stroke Scale Internal: Initial- Upon Arrival Time: 16:50 Level of Consciousness: Alert Level of Consciousness Questions: Answers both questions correctly Level of Consciousness Commands: Performs both tasks correctly Best Gaze: Normal Visual: No visual loss Facial Palsy: Normal Motor Arm (Right): No drift Motor Arm (Left): No drift Motor Leg (Right): No drift Motor Leg (Left): No drift Limb Ataxia: Absent Sensory: Normal Best Language: No aphasia Dysarthia: Normal Extinction and Inattention: No abnormality Score: 0 Course Course Course Narrative: RME, this is a rapid medical exam performed by Kenroy Edwards please refer to primary provider for complete H&P- 75-year-old female presents for evaluation of a syncopal episode. She reports that she was sitting down at lunch eating a hamburger and having a beer. She reports that she saw some flashing lights and then passed out. Her friend witnessed this. The patient came to and has been feeling weak and lightheaded since. She is able to drive herself home. She reports a history of hypertension but no other major medical issues. She is neurologically intact in triage. She does complain of minor chest pain. She will be brought back for an EKG. NIH stroke score of 0 Reevaluation(s) Reevaluation #1: Syncope with diaphoresis, negative cardiac workup in the emergency department. Will admit for cardiac continuous monitoring. Patient is not showing orthostatic vital sign changes. Admit to medical service. Time: 17:46 Medical Decision Making Differential Diagnosis Differential Diagnoses: The differential diagnosis associated with the presentation includes (Dehydration, hypovolemia, hypotension, electrolyte derangement, severe anemia, orthostatic hypotension, ACS, intracranial pathology.) Admission/Observation Consideration of admission/observation: Escalation of care including admission/observation considered Consult Healthcare Provider Management of the patient was discussed with: Hospitalist (Dr. Zabala) Lab Data MDM Lab Attestation statement: I reviewed the patient's lab results. 03/26/25 17:05 03/26/25 17:05 Labs: Lab Results 03/26/25 03/26/25 Range/Units 17:05 17:06 WBC 8.2 (4.8-10.8) X10*3/uL RBC 4.70 (4.20-5.50) X10*6/uL Hgb 14.2 (12.0-16.0) g/dl Hct 43.2 (37.0-47.0) % MCV 91.9 (80.0-98.0) fL MCH 30.2 (27.0-33.0) pg MCHC 32.9 (31.0-35.0) g/dl RDW 13.2 (11.0-16.0) % Plt Count 286 (160-400) X10*3/uL MPV 9.6 (9.4-12.3) fL Immature Gran % (Auto) 0.4 (0.0-0.4) % Neut % (Auto) 71.3 (45-73) % Lymph % (Auto) 18.4 L (20-40) % [place] % (Auto) 7.6 (2-11) % Eos % (Auto) 1.3 (0-4) % Baso % (Auto) 1.0 (0-2) % Lymph # (Auto) 1.5 (1.2-4.9) X10*3/uL [place] # (Auto) 0.6 (0.1-1.2) X10*3/uL Eos # (Auto) 0.1 (0.0-0.4) X10*3/uL Baso # (Auto) 0.1 (0.0-0.2) X10*3/uL Abs Immat Gran (auto) 0.03 (0.00-0.03) X10*3/uL Absolute Neuts (auto) 5.9 (2.0-8.3) x10*3/uL Absolute Nucleated RBC 0.000 (0.0-0.012) X10*3/uL Nucleated RBC % (auto) 0.0 (0.0-0.2) /100WBC Sodium 135 (135-145) mmol/L Potassium 4.2 (3.3-5.1) mmol/L Chloride 105 (96-108) mmol/L Carbon Dioxide 25 (22-29) mmol/L Anion Gap 9 L (12-20) BUN 19 H (9-16) mg/dL Creatinine 0.97 (0.5-1.4) mg/dL Estim Creat Clear Calc 46.4 Estimated GFR 56 Random Glucose 97 (60-115) mg/dL Calcium 8.9 D (8.4-10.2) mg/dL Magnesium 2.0 (1.6-2.6) mg/dL Total Bilirubin 0.3 (0.0-1.0) mg/dL AST 36 H (5-31) U/L ALT 11 (0-31) U/L Alkaline Phosphatase 91 (39-117) U/L Troponin I High Sens 3.5 (<3.5-17.0) ng/L B-Natriuretic Peptide 91 (<100) pg/mL Total Protein 7.2 (6.5-8.0) g/dL Albumin 4.4 (3.5-5.0) g/dL Lipase 27 (8-78) U/L Urine Color Yellow Urine Appearance Clear Urine pH 6.5 (5.0-9.0) Ur Specific [place] 1.010 (1.005-1.025) Urine Protein Negative (Neg-Trace) mg/dL Urine Glucose (UA) Negative (Negative) mg/dL Urine Ketones Negative (Negative) mg/dL Urine Blood Negative (Negative) Urine Nitrite Negative (Negative) Ur Leukocyte Esterase Negative (Negative) Urine RBC 0-2 (0-2) /HPF Urine WBC 0-5 (0-5) /HPF Ur Squamous Epith Cells 0-2 (0-2) /HPF Urine Bacteria None Seen (None Seen) Hyaline Casts 3-5 (0-2) /LPF Ethyl Alcohol < 10 mg/dL Independent Interpretation I performed an independent interpretation of an: EKG (Sinus bradycardia at 59 beats per minutes, normal intervals, no ST-T changes, no EKG changes from prior.), Plain X-Ray (Chest: Hyperinflation. No consolidation.) and CT Scan (Head: No acute intracranial pathology.) Radiology Impression Discussion of test interpretation with radiology: I have reviewed the radiologist's reading. Discharge Plan Discharge Clinical Impression: Syncope and collapse Patient Disposition: Admitted As Inpatient Print Language: Kazakh
[2025-03-26 17:10] LABS: MANUAL DIFF FLAG NO
[2025-03-26 17:12] LABS: Appearance Urine Clear; Color Urine Yellow; Glucose Urine UA Negative (Negative); Leukocyte Esterase Urine Negative (Negative); Nitrite Urine Negative (Negative); PH 6.5 (5.0-9.0); Urine Blood Negative (Negative); Urine Ketones Negative (Negative); Urine Protein Negative (Neg-Trace)
[2025-03-26 17:13] LABS: Basophils Absolute Auto 0.1 X10*3/uL (0.0-0.2); Eosinophils Absolute Auto 0.1 X10*3/uL (0.0-0.4); Eosinophils Percent Auto 1.3 % (0-4); Hematocrit 43.2 % (37.0-47.0); Hemoglobin 14.2 g/dl (12.0-16.0); Imm Gran Abs Auto 0.03 X10*3/uL (0.00-0.03); Imm Gran Pct Auto 0.4 % (0.0-0.4); Lymphocytes Absolute Auto 1.5 X10*3/uL (1.2-4.9); Lymphocytes Percent Auto 18.4 % (20-40); Mean Corpuscular HGB Conc 32.9 g/dl (31.0-35.0); Mean Corpuscular Hemoglobin 30.2 pg (27.0-33.0); Mean Corpuscular Volume 91.9 fL (80.0-98.0); Mean Platelet Volume 9.6 fL (9.4-12.3); Monocytes Absolute Auto 0.6 X10*3/uL (0.1-1.2); Monocytes Percent Auto 7.6 % (2-11); Neutrophils Absolute Auto 5.9 x10*3/uL (2.0-8.3); Neutrophils Percent Auto 71.3 % (45-73); Platelet Count 286 X10*3/uL (160-400); Red Cell Distribution Width 13.2 % (11.0-16.0); White Blood Count 8.2 X10*3/uL (4.8-10.8)
[2025-03-26 17:17] LABS: Bacteria Urine None Seen (None Seen); RBC Urine 0-2 /HPF (0-2); Squamous Epithelial Cell Urine 0-2 /HPF (0-2); WBC Urine 0-5 /HPF (0-5)
[2025-03-26 17:28] LABS: Alanine Aminotransferase 11 U/L (0-31); Albumin Level 4.4 g/dL (3.5-5.0); Alkaline Phosphatase 91 U/L (39-117); Anion Gap 9 (12-20); Aspartate Amino Transferase 36 U/L (5-31); Bilirubin Total 0.3 mg/dL (0.0-1.0); Blood Urea Nitrogen 19 mg/dL (9-16); Calcium 8.9 mg/dL (8.4-10.2); Carbon Dioxide 25 mmol/L (22-29); Chloride 105 mmol/L (96-108); Creatinine Clr Calc Pharmacy 46.4; Estimated Glomerular Filt Rate 56; Ethanol < 10 mg/dL; Glucose Random 97 mg/dL (60-115); Lipase 27 U/L (8-78); Potassium 4.2 mmol/L (3.3-5.1); Sodium 135 mmol/L (135-145); Total Protein 7.2 g/dL (6.5-8.0)
[2025-03-26 17:33] LABS: B Type Natriuretic Peptide 91 pg/mL (<100)
[2025-03-26 17:34] LABS: Troponin-I High Sensitivity 3.5 ng/L (<3.5-17.0)
[2025-03-26 17:48] LABS: Influenza A PCR NEGATIVE (Negative); Influenza B PCR NEGATIVE (Negative); Resp Syncy Virus RNA Qual PCR NEGATIVE (Negative); SARS COV2 PCR INHOUSE NEGATIVE (Negative)
--- OUTSIDE RECORDS SUMMARY | 2025-03-26 18:10 | XMS_ITS | Encounter Summary ---
Author Organization [facility], Address [address] [place] [address] Phone Care Team Providers Care Optician Apprentice Name Role Phone Anastasiia Ayers MD Primary Care Provider [phone] Reason for Visit * Reason Onset Date Comments Med Refill 03/25/2025 Encounter Details Date Type Department Care Team (Late st Contact Info) Description 03/25/2025 Refill [facility] [address] [place] [id number] Juanito Espinal DO [address] [place] [address] Social History Tobacco Use Types Packs/Day Years Used Date Smoking Tobacco: Never Smokeless Tobacco: Never Alcohol Use Standard Drinks/Week Comments Yes 8 (1 standard drink = 0.6 oz pure alcohol) Alcoholic Drinks/day: Occasional social drink Comments Unknown Sex and Gender Information Value Date Recorded Sex Assigned at Female 08/20/2021 9:47 AM EST Legal Sex Female 11:59 AM EDT Gender Identity Female 08/20/2021 9:47 AM EST Sexual Orientation Lesbian 08/20/2021 9: 47 AM EST documented as of this encounter Plan of Treatment Upcoming Encounters Date Type Department Care Team (Late st Contact Info) Description 05/16/2025 4:15 PM EDT Office Visit [facility] [address] [place] [phone] Juanito Espinal DO [address] [place] [address] documented as of this encounter Visit Diagnoses Not on filedocumented in this encounter Care Teams Optician Apprentice Relationship Specialty Start Date End Date Anastasiia Ayers MD [address] [place] [phone] PCP - General Internal Medicine 03/18/20 documented as of this encounter
--- NOTE | 2025-03-26 18:30 | PM.IMHP ---
History of Present Illness Date of Service: 03/26/25 Chief Complaint: Syncope 75-year-old female with a history of hypertension and hypothyroidism presents after a syncopal episode. Patient states he was eating a cheeseburger with a glass of beer at a restaurant when she started feeling lightheaded dizzy and had vision changes. She felt like she was going to pass out; got nauseous and vomiting. She denies having chest pain during episode. She states the episode was self-limiting and she drove herself home. At the prompting of her sister she called the ambulance to be seen at the emergency room. By the time she arrived at ER all symptoms have resolved Review of Systems Review of Systems: Denies chest pain Denies shortness of breath Denies nausea vomiting diarrhea Denies fever chills [facility] Medical History (Updated 03/26/25 @ 18:34 by Reginaldo Zabala DO) ELI (obstructive sleep apnea) HTN (hypertension) Social History Alcohol intake: current Alcohol intake frequency: a few times a week Alcohol type: beer Advance Directives: No Advance Directives Information Provided: No Do you have a plan to hurt others: No Plan Meds Allergies Allergy/AdvReac Type Severity Reaction Status Date / Time morphine (Morphine) Allergy Unknown NAUSEA Verified 03/26/25 16:12 Active Medications: Current Medications Acetaminophen (Acetaminophen 325 Mg Tablet) 650 mg PO Q6H PRN PRN Reason: Pain, Mild 1-3,fever,headache Calcium Carbonate (Calcium Carbonate 750 Mg Tab.Chew) 750 mg PO Q4H PRN PRN Reason: Heartburn Magnesium Hydroxide (Milk Of Magnesia 30 Ml Oral.Susp) 30 ml PO DAILY PRN PRN Reason: Constipation Melatonin (Melatonin 3 Mg Tablet) 6 mg PO BEDTIME PRN PRN Reason: Insomnia Ondansetron HCl (Ondansetron Hcl 4 Mg/2 Ml Vial) 4 mg IVPUSH Q8H PRN PRN Reason: Nausea and Vomiting Sodium Chloride (0.9 % Sodium Chloride Flush 3 Ml Syringe) 3 [facility] Medications ?Medication ?Instructions ?Recorded ?Confirmed ?Last Taken ?Type carvedilol phosphate 80 mg 80 mg PO DAILY 03/26/25 03/26/25 03/26/25 History capsule,[id number] multiphase diltiazem HCl 240 mg 240 mg PO BID 03/26/25 03/26/25 03/26/25 History capsule,extended release 24 hr, controlled (DILT-XR) levothyroxine 50 mcg tablet 50 mcg PO DAILY@0600 03/26/25 03/26/25 03/26/25 History (Levoxyl) lisinopril 20 mg tablet 20 mg PO BID 03/26/25 03/26/25 03/26/25 History Physical Exam Vital Signs and Narrative: Vital Signs: Last Vital Signs Temp 97.2 F 03/26/25 16:07 Pulse 66 03/26/25 17:10 Resp 16 03/26/25 16:07 BP 169/79 H 03/26/25 17:10 Pulse Ox 98 03/26/25 16:07 O2 Del Method Room Air 03/26/25 16:07 BMI result Body Mass Index 24.4 Const: Other: Awake alert oriented x3 in no acute distress Resp: Other: Clear to auscultation bilaterally no rales rhonchi or wheezes Cardio: Other: No S4; positive S1-S2; no S3 murmurs rubs or gallops GI: Other: Soft nontender nondistended normoactive bowel sounds Neuro: Other: Cranial nerves 2-12 grossly intact as tested. Motor is 5/5 all extremities. Sensation is intact. Cognition appropriate. Gait not tested Extrem: Other: No edema bilaterally Results Labs 03/26/25 17:05 03/26/25 17:05 Labs: Laboratory Results - last 24 hr 03/26/25 03/26/25 17:05 17:06 MCV 91.9 MCH 30.2 MCHC 32.9 RDW 13.2 Plt Count 286 MPV 9.6 Immature Gran % (Auto) 0.4 Neut % (Auto) 71.3 Lymph % (Auto) 18.4 L [place] % (Auto) 7.6 Eos % (Auto) 1.3 Baso % (Auto) 1.0 Lymph # (Auto) 1.5 [place] # (Auto) 0.6 Eos # (Auto) 0.1 Baso # (Auto) 0.1 Abs Immat Gran (auto) 0.03 Absolute Neuts (auto) 5.9 Absolute Nucleated RBC 0.000 Nucleated RBC % (auto) 0.0 Anion Gap 9 L Estim Creat Clear Calc 46.4 Estimated GFR 56 Random Glucose 97 Calcium 8.9 D Magnesium 2.0 Total Bilirubin 0.3 AST 36 H ALT 11 Alkaline Phosphatase 91 Troponin I High Sens 3.5 B-Natriuretic Peptide 91 Total Protein 7.2 Albumin 4.4 Lipase 27 Urine Color Yellow Urine Appearance Clear Urine pH 6.5 Ur Specific [place] 1.010 Urine Protein Negative Urine Glucose (UA) Negative Urine Ketones Negative Urine Blood Negative Urine Nitrite Negative Ur Leukocyte Esterase Negative Urine RBC 0-2 Urine WBC 0-5 Ur Squamous Epith Cells 0-2 Urine Bacteria None Seen Hyaline Casts 3-5 Ethyl Alcohol < 10 Influenza Type A (PCR) NEGATIVE Influenza Type B (PCR) NEGATIVE RSV RNA Qual (PCR) NEGATIVE SARS-CoV-2 RNA (RT-PCR) NEGATIVE Assessment and Plan (1) Syncope and collapse: Status: Acute (2) HTN (hypertension): Qualifiers: Hypertension type: primary hypertension Qualified Code(s): I10 - Essential (primary) hypertension Status: Acute (3) ELI (obstructive sleep apnea): Status: Acute Plan 75-year-old female with a history of hypertension and obstructive sleep apnea presents after an episode of lightheadedness and syncope shortly after eating lunch. Symptoms self-limiting and patient drove herself home from the restaurant however sought treatment at the urging of her sister. All symptoms resolved at time of presentation 1. Syncope (likely vasovagal) -observe on telemetry overnight -check orthostatic blood pressures -re-evaluate in a.m. 2. Hypertension -acceptable control on current therapies -adjust as/if indicated 3. Obstructive sleep apnea -CPAP machine at Full code Alejandro Patient will require 1 midnight overnight stay for telemetry monitoring and observation after likely vasovagal/syncopal episode Quality Stroke Does the patient have a stroke diagnosis?: No VTE Prior VTE?: No VTE Risk Level:: Medical - moderate - high VTE Device Contraindication: Treatment Not Indicated VTE Drug Contraindication: N/A - Med Ordered
--- NOTE | 2025-03-26 18:31 | PHA.MEDREC ---
Addendum entered by Raz Valdez [facility] 03/26/25 18:56: med rec reviewed Original Note: Pharmacy Consult ? Medication Reconciliation Pharmacy has completed the medication reconciliation. Patient was very kind and she new all of her medications. Patient states she takes Brand name Levoxyl 50 mcg. Informed patient we do not carry brand name in the pharmacy and she would have to bring it from home. Patient says has had all her morning medications today.
[2025-03-26] MEDS: dilTIAZem HCL CD 240 MG CAP.ER.DEG PO (21:59)
[2025-03-26] MEDS: 0.9 % Sodium Chloride Flush 3 ML SYRINGE IVFLUSH (22:00)
[2025-03-26] MEDS: lisinopriL 20 MG TABLET PO (22:00)
[2025-03-27] MEDS: Levothyroxine Sodium 50 MCG TABLET PO (05:13)
[2025-03-27 05:27] VITALS: BP 155/76; PULSE 60; RESP 18; TEMP 36.3; O2SAT 98
[2025-03-27 07:29] VITALS: BP 164/80; PULSE 71; RESP 20; TEMP 37.1; O2SAT 98
[2025-03-27] MEDS: LORazepam 1 MG TABLET PO (07:38)
[2025-03-27] MEDS: 0.9 % Sodium Chloride Flush 3 ML SYRINGE IVFLUSH (07:38)
[2025-03-27 08:26] VITALS: BP 164/81; PULSE 67
[2025-03-27 09:12] VITALS: BP 149/86; BP 159/90; PULSE 68; PULSE 73
[2025-03-27] MEDS: dilTIAZem HCL CD 240 MG CAP.ER.DEG PO (09:50)
[2025-03-27] MEDS: lisinopriL 20 MG TABLET PO (09:50)
--- NOTE | 2025-03-27 10:39 | MHC.CM.PN ---
[place] 03/27/25, Pt lives alone, she does not have any home health services, PCP confirmed: Joseline Ayers. For DME, she has a CPAP machine. Her sister Lenora AmezcuaMills is her HCP, copy requested. Her sister will transport her home at DC, DCP: home, self care. CM will follow for DC needs.
--- NOTE | 2025-03-27 11:57 | P.DS_ITS ---
DS: Providers Provider Date of Service: 03/27/25 Date of admission: 03/26/25 17:55 Date of discharge: 03/27/25 Primary care physician: Joseline Ayers MD DS: Diagnosis Discharge Diagnosis (1) Syncope and collapse: Status: Inactive (2) HTN (hypertension): Status: Inactive (3) ELI (obstructive sleep apnea): Status: Inactive DS: Summary Hospital Course Hospital Course: From admitting HPI: 75-year-old female with a history of hypertension and hypothyroidism presents after a syncopal episode. Patient states he was eating a cheeseburger with a glass of beer at a restaurant when she started feeling lightheaded dizzy and had vision changes. She felt like she was going to pass out; got nauseous and vomiting. She denies having chest pain during episode. She states the episode was self-limiting and she drove herself home. At the prompting of her sister she called the ambulance to be seen at the emergency room. By the time she arrived at ER all symptoms have resolved. Hospital course: Pt's hospital stay was uncomplicated without any acute events. Was observed on telemetry overnight without any significant cardiac abnormalities or arrhythmias noted. Workup in the ED negative, including labs. Pt reports has a mild headache which is abnormal for her, but otherwise has no acute medical complaints. Pt follows with Nephrology for HTN management and reports no recent medication changes for the past 1.5 years. Pt denies ever experiencing similar syncopal episode before. Syncopal episode likely vasovagal. Given negative workup and negative cardiac monitoring, pt will be discharged home. If pt has repeat episode of lightheadedness, dizziness, or presyncope, pt should return to the ED for additional workup. Should follow up with PCP in the next 1-2 weeks for routine post-hospital follow-up. For HTN continue carvedilol, diltiazem, and lisinopril. Follow up with Nephrology for continued HTN management For hypothyroidism, continue levothyroxine. For anxiety, continue lorazepam. For ELI continue CPAP at nighttime. Time Attestation Discharge Coordination Time (in mins): 35 Quality: Safe Use of Opioids Does Pt have an Active Cancer Diagnosis on the Problem List?: No Quality: Stroke Does the patient have a stroke diagnosis?: No Physical Exam Vital Signs: Vital Signs: Last Vital Signs Temp 98.8 F 03/27/25 07:29 Pulse 73 03/27/25 09:12 Resp 20 03/27/25 07:29 BP 159/90 H 03/27/25 09:12 Pulse Ox 98 03/27/25 07:29 O2 Del Method Room Air 03/27/25 07:29 BMI result Body Mass Index 24.1 General: AOx3, no acute distress Resp: CTA bilaterally CVS: S1, S2, RRR GI: +BS, NT, no distention Skin: Warm, dry Neuro: Cranial nerves II-XII grossly intact bilaterally. Motor grossly intact bilaterally Extremities: No edema Psych: Appropriate affect DS: Data Data Completed and Pending Labs on day of discharge: Laboratory Results - last 24 hr 03/26/25 03/26/25 17:05 17:06 WBC 8.2 RBC 4.70 Hgb 14.2 Hct 43.2 MCV 91.9 MCH 30.2 MCHC 32.9 RDW 13.2 Plt Count 286 MPV 9.6 Immature Gran % (Auto) 0.4 Neut % (Auto) 71.3 Lymph % (Auto) 18.4 L [place] % (Auto) 7.6 Eos % (Auto) 1.3 Baso % (Auto) 1.0 Lymph # (Auto) 1.5 [place] # (Auto) 0.6 Eos # (Auto) 0.1 Baso # (Auto) 0.1 Abs Immat Gran (auto) 0.03 Absolute Neuts (auto) 5.9 Absolute Nucleated RBC 0.000 Nucleated RBC % (auto) 0.0 Sodium 135 Potassium 4.2 Chloride 105 Carbon Dioxide 25 Anion Gap 9 L BUN 19 H Creatinine 0.97 Estim Creat Clear Calc 46.4 Estimated GFR 56 Random Glucose 97 Calcium 8.9 D Magnesium 2.0 Total Bilirubin 0.3 AST 36 H ALT 11 Alkaline Phosphatase 91 Troponin I High Sens 3.5 B-Natriuretic Peptide 91 Total Protein 7.2 Albumin 4.4 Lipase 27 Urine Color Yellow Urine Appearance Clear Urine pH 6.5 Ur Specific [place] 1.010 Urine Protein Negative Urine Glucose (UA) Negative Urine Ketones Negative Urine Blood Negative Urine Nitrite Negative Ur Leukocyte Esterase Negative Urine RBC 0-2 Urine WBC 0-5 Ur Squamous Epith Cells 0-2 Urine Bacteria None Seen Hyaline Casts 3-5 Ethyl Alcohol < 10 Influenza Type A (PCR) NEGATIVE Influenza Type B (PCR) NEGATIVE RSV RNA Qual (PCR) NEGATIVE SARS-CoV-2 RNA (RT-PCR) NEGATIVE Discharge Plan Discharge Anticipated Discharge Date/Time: 03/27/25 11:50 Patient Disposition: Home, Self-Care Referrals: Joseline Ayers MD [Primary Care Provider, Medical] - 1 Week Discharge Medications: Continued lorazepam [Ativan] 1 mg tablet 1 mg PO DAILY PRN (Reason: anxiety) Qty: 10 0RF diltiazem HCl [DILT-XR] 240 mg capsule,ext.rel 24h degradable 240 mg PO BID levothyroxine [Levoxyl] 50 mcg tablet 50 mcg PO DAILY@0600 carvedilol phosphate 80 mg capsule, ER multiphase 24 hr 80 mg PO DAILY lisinopril 20 mg Tablet 20 mg PO BID Discharge Orders: Discharge Order (Routine); Ordered 03/27/25 Ordered By: Lesli Love Activity on Discharge: As tolerated Stand Alone Forms: Patient Portal Discharge page Print Language: Czech Care Plan Goals: Resume all home meds Resolution of symptoms See below Health Concerns: Repeat syncopal episode Light headedness, dizziness Plan of Treatment: Should follow up with PCP in 1-2 weeks' time Return to ED if symptoms return or experiences repeat syncopal episode Assessment: See discharge summary Discharge Date/Time: 03/27/25 13:00
== END 2025-03-27 13:00 | disposition home or self-care (01) ==
LOC: HO.ED 17:45 → HO.EDOVER 18:38 → HO.IMC 19:54
PROVIDERS: Physician Assistant; Admitting Provider Hospitalist; Emergency Provider Emergency Medicine; PCP Internal Medicine; Visit Provider Student in an Organized Health Care Education/Training Program
DX: R55 Syncope and collapse (principal); I10 Essential (primary) hypertension; R51.9 Headache, unspecified; H53.9 Unspecified visual disturbance; R07.9 Chest pain, unspecified; E03.9 Hypothyroidism, unspecified; F41.9 Anxiety disorder, unspecified; G47.33 Obstructive sleep apnea (adult) (pediatric); Z99.89 Dependence on other enabling machines and devices; Z03.818 Encounter for observation for suspected exposure to other biological agents ruled out; Z79.899 Other long term (current) drug therapy
CPT/HCPCS: 0241U; 36415; 70450; 71046; 80053; 80307; 81001; 83690; 83735; 83880; 84484; 85025; 93005; 94660; 99222; 99285

== ENCOUNTER → 2025-03-26 16:13 | Outpatient (BNV) | payer OTHER, SELFPAY | PROVIDERS: Emergency Provider Emergency Medicine; PCP Internal Medicine; Visit Provider Radiology Diagnostic Radiology | DX: R55 Syncope and collapse (principal); R07.9 Chest pain, unspecified | CPT/HCPCS: 71046 ==

== ENCOUNTER → 2025-03-26 16:13 | Outpatient (BNV) | payer OTHER, SELFPAY | PROVIDERS: Admitting Provider Hospitalist; Emergency Provider Emergency Medicine; PCP Internal Medicine; Visit Provider Internal Medicine Cardiovascular Disease | DX: R00.1 Bradycardia, unspecified (principal) | CPT/HCPCS: 93010 ==

== ENCOUNTER → 2025-03-26 16:28 | Outpatient (BNV) | payer OTHER, SELFPAY | PROVIDERS: Emergency Provider Emergency Medicine; PCP Internal Medicine; Visit Provider Hospitalist | DX: R55 Syncope and collapse (principal); I10 Essential (primary) hypertension; G47.33 Obstructive sleep apnea (adult) (pediatric) | CPT/HCPCS: 99223 ==

== ENCOUNTER 2025-08-08 10:19 | Outpatient (REF) | payer OTHER, SELFPAY ==
--- NOTE | ~2025-08-08 | XR_ITS ---
EXAMINATION: XR LUMBOSACRAL SPINE CLINICAL INFORMATION: M43.16 - Spondylolisthesis, lumbar region COMPARISON: None available. TECHNIQUE: Lateral views in neutral, flexion and extension position. AP view. FINDINGS: Multilevel endplate sclerosis and marginal osteophyte formation throughout the axial skeleton. Decreased intervertebral disc height at L4-5 and L5-S1. Grade 1 anterolisthesis at L4-5 8 neutral position which persists during flexion and extension position. No lytic or blastic lesions. Vascular calcifications, aorta. XR/XR lumbar spine 4V min IMPRESSION: Multilevel thoracolumbar spondylosis and grade 1 anterolisthesis L4-5 without gross instability. Electronically signed by: Andriy Pham MD 08/08/2025 11:51 AM EDT
== END 2025-08-08 10:20 | disposition home or self-care (01) ==
LOC: HO.HOSX 10:19
PROVIDERS: PCP Internal Medicine; Referring Provider Physical Medicine & Rehabilitation; Visit Provider Neurological Surgery
DX: M43.16 Spondylolisthesis, lumbar region (principal)
CPT/HCPCS: 72110

== ENCOUNTER 2025-08-08 10:19 | Outpatient (AMB) | payer OTHER, SELFPAY ==
[2025-08-08 10:34] VITALS: BMI 24.9
--- NOTE | 2025-08-08 10:34 | HO.SPINEOV ---
Vital Signs 08/08/25 10:34 Height 5 ft 4 in Weight 145 lb BMI 24.9 Intake Visit Reasons: LBP Intake Note: Ms. Pollack is here today c/o low back pain. Search Engine Optimization Analyst Required: No Allergies morphine (Morphine) Allergy (Unknown, Verified 08/08/25 10:35) NAUSEA Physical Exam Vital Signs: BMI result Body Mass Index 24.9 Assessment & Plan Assessment & Plan (1) Spondylolisthesis of lumbar region: Code(s): M43.16 - Spondylolisthesis, lumbar region Category: Medical Plan: Dear colleague Thank you for referring Ary Pollack to the office today with a chief complaint of chronic, severe low back pain. HPI: This 75-year-old female is suffering from severe low back pain that started several years ago. Initially, she responded well to cortisone injections. She developed an what sounds like an [place] crisis which was treated with steroids and she was told not to have anymore steroid injections. An RFA was done with a near 100% relief for a year. The RFA was repeated and unsuccessful. She was referred to me for a surgical opinion. She denies significant radiation down her legs. She did have an episode of sciatica few years ago that radiated to the left thigh. Besides injections she tried physical therapy and acupuncture. Medical history: Hypertension, hypercholesterolemia, hypothyroidism Medications: Atorvastatin, diltiazem, levothyroxine, lisinopril, lorazepam p.r.n. Allergies: Morphine Social history: Nonsmoker. Active walker Radiological Studies: MRI done at [facility] on 07/02/2025 shows degenerative disc disease L4-5 and L5-S1 with the L5-S1 segment is more affected. In addition there is an L4-5 spondylo listhesis. A dynamic lumbar x-rays shows Impression/Plan: This patient is suffering from chronic low back pain that responded well to a facet denervation in the past. A repetition of the procedure was not successful. I explained to the patient that you informed scar tissue after the initial procedure and that is most likely reason why a 2nd procedure is much less successful. I do think she is a good candidate for an endoscopic transsection of the medial branches to treat her back pain and to avoid a fusion. We will get the records from [facility] to see which medial branch blocks gave her the initial relief and schedule her for the endoscopic procedure Thank you for allowing me to participate in your patients care. total time spent was 50 minutes in counseling ,coordination of plan, personal review of imaging, surgical decision making and subsequent plan Carlitos Zhang MD, PhD Spine Fellowship Trained Neurosurgeon Director, [facility] Orders: Orders XR lumbar spine 4V min Today M43.16 - Spondylolisthesis, lumbar region Coding Level of Care Code New Pt Level 4 (79584) Diagnoses Spondylolisthesis of lumbar region M43.16
--- OUTSIDE RECORDS SUMMARY | 2025-08-08 11:39 | XMS_ITS | Encounter Summary ---
Author Organization [facility], Address [address] [place] [address] Phone Care Team Providers Care It Business Analyst Name Role Phone Anastasiia Ayers MD Primary Care Provider [phone] Encounter Details Date Type Department Care Team (Late st Contact Info) Description 07/19/2024 Documentation Only [facility], [address] [place] [address] Juanito Espinal [address] [facility] [place] [phone] Social History Tobacco Use Types Packs/Day Years [...] as of this encounter Plan of Treatment Not on file documented as of this encounter Visit Diagnoses Not on filedocumented in this encounter Care Teams It Business Analyst Relationship Specialty Start Date End Date Anastasiia Ayers MD [address] [place] [address] [address] [place] [address] PCP - General Internal Medicine 03/18/20 documented as of this encounter
--- OUTSIDE RECORDS SUMMARY | 2025-08-08 11:39 | XMS_ITS | Encounter Summary ---
Author Organization [facility], Address [address] [place] [address] Phone Care Team Providers Care Ui Developer Designer Name Role Phone Anastasiia Ayers MD Primary Care Provider [phone] Encounter Details Date Type Department Care Team (Late st Contact Info) Description 12/27/2024 Documentation Only [facility], [address] [place] [address] Juanito Espinal [address] [facility] [place] [phone] Social History Tobacco Use Types Packs/Day Years [...] on filedocumented in this encounter Care Teams Ui Developer Designer Relationship Specialty Start Date End Date Anastasiia Ayers MD [address] [place] [address] [address] [place] [address] PCP - General Internal Medicine 03/18/20 documented as of this encounter
--- OUTSIDE RECORDS SUMMARY | 2025-08-08 11:39 | XMS_ITS | Encounter Summary ---
Author Organization [facility], Address [address] [place] [address] Phone Care Team Providers Care C++ Quant Developer Name Role Phone Anastasiia Ayers MD Primary Care Provider [phone] Encounter Details Date Type Department Care Team (Late st Contact Info) Description 04/17/2024 Documentation Only [facility], [address] [place] [address] Viji Yoo [address] [place] [phone] Social History Tobacco Use Types Packs/Day Years [...] on filedocumented in this encounter Care Teams C++ Quant Developer Relationship Specialty Start Date End Date Anastasiia Ayers MD [address] [place] [address], [address] [place] [address] PCP - General Internal Medicine 03/18/20 documented as of this encounter
--- OUTSIDE RECORDS SUMMARY | 2025-08-08 11:39 | XMS_ITS | Encounter Summary ---
Author Organization [facility], Address [address] [place] [address] Phone Care Team Providers Care Form Setter Helper Name Role Phone Anastasiia Ayers MD Primary Care Provider [phone] Encounter Details Date Type Department Care Team (Late st Contact Info) Description 07/19/2024 Documentation Only [facility], [address] [place] [address] Juanito Espinal [address] [facility] [place] [phone] Social History Tobacco Use Types Packs/Day Years [...] on filedocumented in this encounter Care Teams Form Setter Helper Relationship Specialty Start Date End Date Anastasiia Ayers MD [address] [place] [address] [address] [place] [address] PCP - General Internal Medicine 03/18/20 documented as of this encounter
--- OUTSIDE RECORDS SUMMARY | 2025-08-08 11:39 | XMS_ITS | Encounter Summary ---
Author Organization [facility] Address [address] [facility] [address] [place] [address] Phone Care Team Providers Care School Librarian Name Role Phone Joseline Ayers MD Primary Care Provider [phone] Encounter Details Date Type Department Care Team (Late st Contact Info) Description 04/29/2022 Procedure Pass [facility] PERIOP DEPT [address] [place] [address] Social History Tobacco Use Types Packs/Day Years Used Date Smoking Tobacco: Never Smokeless Tobacco: Never Alcohol Use Standard Drinks/Week Comments Yes 10 (1 standard drink = 0.6 oz pu re alcohol) Comments No Sex and Gender Information Value Date Recorded Sex Assigned at Not on file Legal Sex Female 7:16 PM EST Gender Identity Not on file Sexual Orientation Not on file documented as of this encounter Plan of Treatment Not on file documented as of this encounter Visit Diagnoses Not on filedocumented in this encounter Care Teams School Librarian Relationship Specialty Start Date End Date Joseline Ayers MD [address] [place] [address] [address] [place] [address] PCP - General Internal Medicine 07/15/20 documented as of this encounter Additional Source Comments The information contained in this document represents components of the legal health record. It is not the complete legal health record.[facility]
--- OUTSIDE RECORDS SUMMARY | 2025-08-08 11:39 | XMS_ITS | Encounter Summary ---
Author Organization [facility], Address [address] [place] [address] Phone Care Team Providers Care Die Forger Name Role Phone Anastasiia Ayers MD Primary Care Provider [phone] Encounter Details Date Type Department Care Team (Late st Contact Info) Description 09/20/2022 Documentation Only [facility], [address] [place] [address] Juanito Espinal [address] [facility] [place] [phone] Social History Tobacco Use Types Packs/Day Years [...] on filedocumented in this encounter Care Teams Die Forger Relationship Specialty Start Date End Date Anastasiia Ayers MD [address] [place] [address] [address] [place] [address] PCP - General Internal Medicine 03/18/20 documented as of this encounter
--- OUTSIDE RECORDS SUMMARY | 2025-08-08 11:39 | XMS_ITS | Encounter Summary ---
Author Organization [facility] Address [address] [place] [address] Phone Care Team Providers Care Curator Name Role Phone Joseline Ayers MD Primary Care Provider [phone] Encounter Details Date Type Department Care Team (Latest Contact Info) Description 07/14/2020 Ancillary Orders Virtual Department [address] [place] [address] Raz Sotelo, DO [address] [place] [phone] Lumbar radiculopathy Social History Tobacco Use Types Packs/Day Years Used Date Smoking Tobacco: Never Assessed Comments Unknown Sex and Gender Information Value Date Recorded Sex Assigned at Not on file Legal Sex Female 7:16 PM EST Gender Identity Not on file Sexual Orientation Not on file documented as of this encounter Plan of Treatment Not on file documented as of this encounter Visit Diagnoses Diagnosis Lumbar radiculopathy Thoracic or lumbosacral neuritis or radiculitis, unspecified documented in this encounter Care Teams Curator Relationship Specialty Start Date End Date Joseline Ayers MD [address] [place] [address] [address] [place] [address] PCP - General Internal Medicine 07/15/20 documented as of this encounter Additional Source Comments The information contained in this document represents components of the legal health record. It is not the complete legal health record.[facility]
--- OUTSIDE RECORDS SUMMARY | 2025-08-08 11:39 | XMS_ITS | Encounter Summary ---
Author Organization [facility], Address [address] [place] [address] Phone Care Team Providers Care Sql Consultant Name Role Phone Anastasiia Ayers MD Primary Care Provider [phone] Encounter Details Date Type Department Care Team (Late st Contact Info) Description 01/06/2025 Documentation Only [facility], [address] [place] [address] Juanito Espinal [address] [facility] [place] [phone] Social History Tobacco Use Types Packs/Day Years [...] on filedocumented in this encounter Care Teams Sql Consultant Relationship Specialty Start Date End Date Anastasiia Ayers MD [address] [place] [address] [address] [place] [address] PCP - General Internal Medicine 03/18/20 documented as of this encounter
--- OUTSIDE RECORDS SUMMARY | 2025-08-08 11:39 | XMS_ITS | Encounter Summary ---
Author Organization [facility], Address [address] [place] [address] Phone Care Team Providers Care Fingerprint Technician Name Role Phone Anastasiia Ayers MD Primary Care Provider Encounter Details Date Type Department Care Team (Late st Contact Info) Description 04/17/2024 Documentation Only [facility], [address] [place] [address] Viji Yoo [address] [place] [phone] Social History Tobacco Use Types Packs/Day Years [...] on filedocumented in this encounter Care Teams Fingerprint Technician Relationship Specialty Start Date End Date Anastasiia Ayers MD [address] [place] [address], [address] [place] [address] PCP - General Internal Medicine 03/18/20 documented as of this encounter
--- OUTSIDE RECORDS SUMMARY | 2025-08-08 11:39 | XMS_ITS | Clinical Summary ---
Author Organization [facility] Address [address] [address] Phone Care Team Providers Care Cutter Grinder Name Role Phone Joseline Ayers MD Primary Care Provider Allergies Active Allergy Reactions Criticality Noted Date Comments Amlodipine Rash Low 04/21/2020 Hydrochlorothiazide Other (See Comments) 2019 Fatigue Morphine GI Upset 04/21/2020 Medications dilTIAZem (CARDIZEM CD) 240 MG 24 hr capsule 2 (two) times a day. 04/04/2022 Active levothyroxine (SYNTHROID, LEVOTHROID) 50 MCG tablet Take 50 mcg by mouth. 04/05/2022 Active LEVOXYL 50 mcg tablet 04/06/2022 Active liothyronine (CYTOMEL) 5 MCG tablet Take 1 tablet by mouth. Active lisinopril (PRINIVIL,ZESTR IL) 10 MG tablet 2 (two) times a day. 04/04/2022 Active MAGNESIUM GLYCINATE ORAL Take by mouth. Active acetaminophen (TYLENOL) 325 mg tablet Take 2 tablets (650 mg total) by mouth every 4 (four) hours as needed for mild pain. 04/29/2022 Active ibuprofen (ADVIL,MOTRIN) 200 MG tablet Take 2 tablets (400 mg total) by mouth every 6 (six) hours as needed for pain (specific location in comments). 04/29/2022 Active Social History Tobacco Use Types Packs/Day Years Used Date Smoking Tobacco: Never Smokeless Tobacco: Never Alcohol Use Standard Drinks/Week Comments Yes 10 (1 standard drink = 0.6 oz pu re alcohol) Education Answer Date Recorded Are you interested in more education? Not on rodríguez e 02/02/2023 Are you concerned about learning? Not on file 02/02/2023 No 02/02/2023 No 02/02/2023 Digital Access Answer Date Recorded No 03/06/2023 No 03/06/2023 No 03/06/2023 Reliable internet access at home? Not on file 03/06/2023 Device with a working camera? Not on file Comments No Sex and Gender Information Value Date Recorded Sex Assigned at Not on file Legal Sex Female 7:16 PM EST Gender Identity Not on file Sexual Orientation Not on file Last Filed Vital Signs Vital Sign Reading Time Taken Comments Blood Pressure 144/86 04/29/2022 2:45 PM EDT Pulse 69 04/29/2022 2:45 PM EDT Temperature 37.2 C (98.9 F) 04/29/2022 2:00 PM EDT Respiratory Rate 19 04/29/2022 2:45 PM EDT Oxygen Saturation 99% 04/29/2022 2:45 PM EDT Inhaled Oxygen Concentration - - Weight 62.6 kg (138 lb) 04/29/2022 11:21 AM EDT Height 165.1 cm (5' 5 ) 04/29/2022 11:21 AM EDT Body Mass Index 22.96 04/29/2022 11:21 AM EDT Plan of Treatment Health Maintenance Due Date Last Done Comments CREATININE LEVEL 1952 LIPID PANEL 1952 POTASSIUM LEVEL 1952 TSH LEVEL 1952 DEPRESSION SCREENING 1964 HEPATITIS C SCREENING 1970 MAMMOGRAM 1992 COLOGUARD 1997 COLONOSCOPY 1997 COLORECTAL CANCER SCREENING 1997 FIT TEST 1997 FOBT 1997 SIGMOIDOSCOPY 1997 VIRTUAL COLONOSCOPY 1997 ZOSTER VACCINES (1 of 2) 2002 OSTEOPOROSIS SCREENING INITIAL (ONE-TIME) 2017 INFLUENZA VACCINE (#1) 2025 , 08/05/2020, 07/22/2019, Additional history exists COVID-19 VACCINE ( season) 2025 08/20/2021, 12/29/2020, 12/01/2020 RSV VACCINE (1 - 1-dose 75+ series) 2027 Adult Td,Tdap Booster 02/01/2028 01/31/2018, 018 PNEUMOCOCCAL VACCINES (50+ years) Completed 08/06/2018, 06/07/2017 SMOKING STATUS SCREENING (Once After 26 Yrs) Completed 04/22/2022 HEPATITIS A VACCINES Aged Out No long er eligible based on patient's age to complete this topic HIB VACCINES Aged Out No longer eligi ble based on patient's age to complete this topic MENINGOCOCCAL VACCINES (ACWY) Aged Out No longer eligible based on patient's age to complete this topic MENINGOCOCCAL VACCINES (B) Aged Out N o longer eligible based on patient's age to complete this topic Medical Devices Not on file Insurance [employer] TOTAL CHOICE INDEMNITY [employer] TOTAL CHOICE IN[facility]MN[facility] TOTAL CHOICE [facility]MNITY [facility] TOTAL CHOICE [facility]DEMNITY [facility] TOTAL CHOICE [facility]DEMNITY [facility] TOTAL CHOICE [facility]MNITY [facility] TOTAL CHOICE INDEMNITY [facility] TOTAL CHOICE INDEMNITY Advance Directives For more information, please contact: [phone] (9AM - 5PM [facility], Monday-Monday) Documents on File Type Date Recorded Patient Principal Architect Expl anation Healthcare Proxy 07/07/2022 5:53 PM Care Teams Cutter Grinder Relationship Specialty Start Date End Date Joseline Ayers MD [address] [place] [address] PCP - General Internal Medicine 07/15/20 Additional Source Comments The information contained in this document represents components of the legal health record. It is not the complete legal health record.[facility]
--- OUTSIDE RECORDS SUMMARY | 2025-08-08 11:39 | XMS_ITS | Clinical Summary ---
Author Organization [facility], [place], Address [address] [place] [address] Phone Care Team Providers Care Rn Visiting Name Role Phone Anastasiia Ayers MD Primary Care Provider [phone] Allergies Active Allergy Reactions Criticality Noted Date Comments Amlodipine 04/21/2020 Carvedilol 08/25/2023 Severe Pruritis, HTN Hydrochlorothiazide 04/21/2020 Morphine 04/21/2020 Medications * This document contains information received from the source organization and may not represent a complete record from that organization. LORazepam (ATIVAN) 1 MG tablet Take 1 mg by mouth 1 (one) time each day Active carvedilol CR (COREG CR) 80 MG 24 hr capsule Take 1 capsule (80 mg total) by mouth 1 (one) time each day Do not crush or chew. 90 capsule 3 03/25/2025 Active dilTIAZem XR (DILACOR XR) 240 MG 24 hr capsule Take 1 capsule (240 mg total) by mouth in the morning and 1 capsule (240 mg total) in the evening. 180 capsule 3 03/25/2025 Active lisinopril 20 MG tabletIndicatio ns:Hypertensive disorder Take 1 tablet (20 mg total) by mouth in the morning and 1 tablet (20 mg total) in the evening. 180 tablet 3 03/25/2025 Active levothyroxine (SYNTHROID, LEVOTHROID) 50 MCG tablet Take 1 tablet (50 mcg total) by mouth 1 (one) time each day 90 tablet 3 03/25/2025 Active Active Problems Problem Noted Date Diagnosed Date Anxiety 04/21/2020 Hypertensive disorder 04/21/2020 Hypothyroidism 04/21/2020 Osteopenia 04/21/2020 Encounters Date Type Department Care Team Description 05/16/2025 4:15 PM EDT Office Visit [facility], [address] [place] [address] Juanito Espinal DO Hypertensive disorder (Primary Dx) from Last 3 Months Immunizations Immunization Administration Dates Next Due H1N1 Inj 09/25/2009 Influenza Whole 07/17/2014 Influenza, Unspecified 07/13/2022,2020,08/05/2020,07/22/2019 ,08/06/2018,08/16/2017,10/20/2016, 6,08/26/2010,07/08/2009 Moderna SARS-COV-2 08/20/2021,12/29/2020, 021 Pneumococcal Conjugate 13-Valent 06/07/2017 Pneumococcal Polysaccharide 08/06/2018 Td, Unspecified 10/24/2017 Tdap 01/31/2018,11/15/2007 Family History Medical History Relation Comments Cancer Brother Hypertension Brother Gout Father Heart disease Father Stroke Father Cancer Maternal Grandmother Diabetes Maternal Grandmother Heart disease Mother Hyperlipidemia Mother Hypertension Mother Stroke Mother Cancer Sibling Cancer Sister Hypertension Sister Relation Status Comments Brother Father Maternal Grandmother Mother Sibling Sister Social History Tobacco Use Types Packs/Day Years Used Date Smoking Tobacco: Never Smokeless Tobacco: Never Tobacco Cessation:Counseling Given: Not Answered Alcohol Use Standard Drinks/Week Comments Yes 8 (1 standard drink = 0.6 oz pure alcohol) Alcoholic Drinks/day: Occasional social drink Comments Unknown Sex and Gender Information Value Date Recorded Sex Assigned at Female 08/20/2021 9:47 AM EST Legal Sex Female 11:59 AM EDT Gender Identity Female 08/20/2021 9:47 AM EST Sexual Orientation Lesbian 08/20/2021 9: 47 AM EST Last Filed Vital Signs Vital Sign Reading Time Taken Comments Blood Pressure 128/68 05/16/2025 4:29 PM EDT Pulse 64 05/16/2025 4:29 PM EDT Temperature - - Respiratory Rate - - Oxygen Saturation 99% 08/27/2019 12:00 PM EST Inhaled Oxygen Concentration - - Weight - - Height 162.6 cm (5' 4 ) 08/27/2019 12:00 PM EST Body Mass Index - - Plan of Treatment Health Maintenance Due Date Last Done Comments Breast Cancer Screening 1950 Colorectal Cancer Screening: Annual FOBT 2001 Colorectal Cancer Screening: Colonoscopy 2001 Colorectal Cancer Screening: Sigmoidoscopy 2001 Influenza Vaccine (#1) 2025 2, 07/13/2022, 07/09/2021, Additional history exists Pneumococcal Vaccine: 50+ Years Completed 08/06/2018, 06/07/2017 Pneumococcal Vaccine: Peds (0 to 5 Years) and At-Risk Patients (6 to 49 Years) Discontinued 08/06/2018, 06/07/2017 Hepatitis B Vaccine Aged Out No longe r eligible based on patient's age to complete this topic [place] [address] [place] [address] Care Teams Rn Visiting Relationship Specialty Start Date End Date Anastasiia Ayers MD [address] [place] [address], [facility] [address] [place] [address] PCP - General Internal Medicine 03/18/20
--- OUTSIDE RECORDS SUMMARY | 2025-08-08 11:39 | XMS_ITS | Encounter Summary ---
Author Organization [facility], Address [address] [place] [address] Phone Care Team Providers Care Form Maker Plaster Name Role Phone Anastasiia Ayers MD Primary Care Provider [phone] Encounter Details Date Type Department Care Team (Late st Contact Info) Description 02/04/2025 Telephone [facility], [address] [place] [phone] Sarah Lopez Social History Tobacco Use Types Packs/Day Years [...] AM EST documented as of this encounter Miscellaneous Notes * Telephone Encounter - Sarah Lopez - 02/04/2025 8:[address] Espinal, call from Ary to report side effect of sunlight sensitivity since taking the Hydralazine; stated she is frequently outside and sun was never an issue until these past few days and sheis requesting to stop medication and keep an eye on her bp and if need be to add another medication- she's open to try something else. Bp with Hydralazine was ranging 120's/70's. Please advise, thank you. documented in this encounter Plan of Treatment Not on file documented as of this encounter Visit Diagnoses Not on filedocumented in this encounter Care Teams Form Maker Plaster Relationship Specialty Start Date End Date Anastasiia Ayers MD [address] [place] [address], [address] [place] [address] PCP - General Internal Medicine 03/18/20 documented as of this encounter
--- OUTSIDE RECORDS SUMMARY | 2025-08-08 11:39 | XMS_ITS | Encounter Summary ---
Author Organization [facility], Address [address] [place] [address] Phone Care Team Providers Care Neurological Physiotherapist Name Role Phone Anastasiia Ayers MD Primary Care Provider [phone] Encounter Details Date Type Department Care Team (Late st Contact Info) Description 11/22/2023 Documentation Only [facility], [address] [place] [address] Juanito Espinal [address] [place] [phone] Social History Tobacco Use Types Packs/Day Years [...] on filedocumented in this encounter Care Teams Neurological Physiotherapist Relationship Specialty Start Date End Date Anastasiia Ayers MD [address] [place] [address] [address] [place] [address] PCP - General Internal Medicine 03/18/20 documented as of this encounter
--- OUTSIDE RECORDS SUMMARY | 2025-08-08 11:39 | XMS_ITS | Encounter Summary ---
Author Organization [facility], Address [address] [place] [address] Phone Care Team Providers Care Contact Representative Name Role Phone Anastasiia Ayers MD Primary Care Provider [phone] Encounter Details Date Type Department Care Team (Late st Contact Info) Description 08/28/2023 Documentation Only [facility], [address] [place] [address] Juanito Espinal [address] [place] [phone] Social History Tobacco Use Types Packs/Day Years [...] on filedocumented in this encounter Care Teams Contact Representative Relationship Specialty Start Date End Date Anastasiia Ayers MD [address] [place] [address] [address] [place] [address] PCP - General Internal Medicine 03/18/20 documented as of this encounter
--- OUTSIDE RECORDS SUMMARY | 2025-08-08 11:39 | XMS_ITS | Encounter Summary ---
Author Organization [facility], Address [address] [place] [address] Phone Care Team Providers Care Birth Attendant Name Role Phone Anastasiia Ayers MD Primary Care Provider [phone] Encounter Details Date Type Department Care Team (Late st Contact Info) Description 04/17/2024 Documentation Only [facility], [address] [place] [address] Viji Yoo [address] [place] [phone] Social History Tobacco Use Types Packs/Day Years [...] on filedocumented in this encounter Care Teams Birth Attendant Relationship Specialty Start Date End Date Anastasiia Ayers MD [address] [place] [address], [address] [place] [address] PCP - General Internal Medicine 03/18/20 documented as of this encounter
== END 2025-08-08 11:38 | disposition home or self-care (01) ==
LOC: HO.HNS 10:20
PROVIDERS: PCP Internal Medicine; Referring Provider Physical Medicine & Rehabilitation; Visit Provider Neurological Surgery
DX: M43.16 Spondylolisthesis, lumbar region (principal)
CPT/HCPCS: 99204

== ENCOUNTER → 2025-08-08 11:15 | Outpatient (BNV) | payer OTHER, SELFPAY | PROVIDERS: PCP Internal Medicine; Referring Provider Physical Medicine & Rehabilitation; Visit Provider Radiology Diagnostic Radiology | DX: M43.16 Spondylolisthesis, lumbar region (principal) | CPT/HCPCS: 72110 ==